=== PATIENT | female | born 1930 | race Caucasian/White ===

== ENCOUNTER 2017-03-20 17:16 | Observation (INO) | payer MEDICARE ==
[2017-03-20] MEDS ORDERED: NS 0.9% 1000 ML* 1,000 ML IV ONE (20:39)
[2017-03-20 21:08] LABS: Hematocrit 30 % (35-47); Mean Corpuscular HGB Conc 33 g/dl (31-36); Mean Corpuscular Hemoglobin 29 pg (27-31); Mean Corpuscular Volume 87 fL (80-97); Mean Platelet Volume 10 um3 (7.4-10.4); Red Blood Count 3.47 10^6/ul (4.0-5.4); Red Cell Distribution Width 14 % (10.5-15); White Blood Count 14.5 10^3/ul (3.5-10.8)
[2017-03-20 21:24] LABS: Albumin 3.6 g/dL (3.2-5.2); BUN/Creatinine Ratio 21.7 (8-20); Calcium 9.2 mg/dL (8.6-10.3); EGFR African American 63.4 (>60); EGFR Non-African American 49.3 (>60); Globulin 3.5 g/dL (2-4); Magnesium 1.5 mg/dL (1.9-2.7); Potassium 3.2 mmol/L (3.5-5.0); Total Bilirubin 0.6 mg/dL (0.2-1.0); Total Protein 7.1 g/dL (6.4-8.9)
[2017-03-20 21:26] LABS: Troponin I 0.01 ng/mL (<0.04)
[2017-03-20] MEDS ORDERED: Potassium Chlor TAB* 20 MEQ TAB.ER PO ONE (21:42)
[2017-03-20 21:46] LABS: TSH (Thyroid Stimulating Horm) 5.16 mcIU/mL (0.34-5.60)
--- NOTE | 2017-03-20 21:56 | RAD ---
HISTORY: Weakness COMPARISONS: None VIEWS:1: Single frontal portable view of the chest at 8:10 PM FINDINGS: LINES AND TUBES: None. CARDIOMEDIASTINAL SILHOUETTE: The cardiomediastinal silhouette is normal for portable technique. PLEURA: The costophrenic angles are sharp. No pleural abnormalities are noted. LUNG PARENCHYMA: There is hyperinflation. ABDOMEN: The upper abdomen is clear. There is no subphrenic gas. BONES AND SOFT TISSUES: No bone or soft tissue abnormalities are noted. IMPRESSION: HYPERINFLATION. NO ACTIVE CARDIOPULMONARY DISEASE.
[2017-03-21] MEDS ORDERED: Al Hydrox/Mg Hydrox/Simet LIQ* 30 ML UDC PO PRN (00:33)
[2017-03-21] MEDS ORDERED: Docusate CAP* 100 MG PO PRN (00:33)
[2017-03-21] MEDS ORDERED: Magnesium Hydroxide LIQ* 30 ML UDC PO PRN (00:33)
[2017-03-21] MEDS ORDERED: Acetaminophen TAB* 325 MG PO PRN (00:33)
[2017-03-21] MEDS ORDERED: Senna TAB PO PRN (00:33)
[2017-03-21] MEDS ORDERED: traMADol TAB* 50 MG PO PRN (00:36)
[2017-03-21] MEDS ORDERED: Magnesium Sulfate 2 GM IV* 2 GM/50 ML BAG IVPB ONE (00:42)
[2017-03-21 00:53] LABS: C Reactive Protein 98.23 mg/L (< 5.00)
[2017-03-21 01:41] LABS: Erythrocyte Sed Rate 47 mm/Hr (0-40)
--- NOTE | 2017-03-21 01:42 | ED ---
Phuong Jimenez Alok, scribed for Antelmo Redd on 03/20/17 at 2107 . Upper Extremity Pain - HPI Summary HPI Summary: 87 y/o female presents to the ED for pain described as a soreness in her upper arms and shoulders bilaterally. Pt has been taking Lipitor since November 2016 and states that her arm pain began following an increase of her Lipitor dosage in January 2017 to 80 mg which was subsequently decreased to 40 mg shortly after onset of pain. Following this decrease however, the pt still reports her upper extremity pain has still been present and worsening. Pt's condition has worsened yet again today and has been unable to ambulate or move her arms since today, last ambulating a small amount yesterday. Pt has been straining to get up for the past few days. Pt denies abd pain, CP, SOB, or HARRIS. PMHx includes HTN. Pt lives alone and spoke with her PCP today who instructed her to discontinue her Lipitor. - History of Current Complaint Chief Complaint: EDWeakness Stated Complaint: WEAKNESS Time Seen by Provider: 03/20/17 20:30 Hx Obtained From: Patient Onset/Duration: Started Weeks Ago, Still Present, Worse Since - Today Severity Initially: Moderate Severity Currently: Moderate Pain Location: Shoulder - Bilaterally, Arm - Bilaterally Associated Signs & Symptoms: Positive: Weakness - Upper and lower extremities bilaterally. Negative: Chest Pain, SOB - Allergies/Home Medications Allergies/Adverse Reactions: Allergies Allergy/AdvReac Type Severity Reaction Status Date / Time No Known Allergies Allergy Verified 03/20/17 19:33 Home Medications: Home Medications Metoprolol Succinate [Toprol Xl] 50 mg PO QPM 03/21/17 [History Confirmed ] Valsartan TAB* [Diovan TAB*] 80 mg PO QPM 03/21/17 [History Confirmed 03/21/17] PMH/Surg Hx/FS Hx/Imm Hx Cardiovascular History: Reports: Hx Hypertension Infectious Disease History: No Infectious Disease History: Denies: Traveled Outside the [place] in Last 30 Days - Family History Known Family History: Negative: Hypertension - Social History Alcohol Use: None Substance Use Type: Reports: None Smoking Status (MU): Never Smoked Tobacco Review of Systems Negative: Fever Negative: Shortness Of Breath Negative: Abdominal Pain Positive: Other - Upper extremity pain bilaterally Positive: Weakness - Upper and lower extremity weakness bilaterally. Negative: Headache All Other Systems Reviewed And Are Negative: Yes Physical Exam Triage Information Reviewed: Yes Vital Signs On Initial Exam: Initial Vitals Temp Pulse Resp BP Pulse Ox 98.5 F 93 20 150/51 100 03/20/17 17:19 03/20/17 17:19 03/20/17 17:19 03/20/17 17:19 03/20/17 17:19 Vital Signs Reviewed: Yes Appearance: Positive: Well-Appearing, No Pain Distress Skin: Positive: Warm, Skin Color Reflects Adequate Perfusion, Dry Head/Face: Positive: Normal Head/Face Inspection Eyes: Positive: EOMI, LIZETH ENT: Positive: Normal ENT inspection Neck: Positive: Supple, Nontender Respiratory/Lung Sounds: Positive: Clear to Auscultation, Breath Sounds Present Cardiovascular: Positive: RRR Abdomen Description: Positive: Nontender, Soft Bowel Sounds: Positive: Present Musculoskeletal: Positive: Other - Unable to move upper extremities bilaterally. Upper extremity tenderness bilaterally. Neurological: Positive: Alert, Oriented to Person Place, Time, CN Intact II-III , Other - Unable to move upper extemities bilaterally. No focal/neurological deficit - Katty Coma Scale Coma Scale Total: 15 Diagnostics - Vital Signs Vital Signs Temp Pulse Resp BP Pulse Ox 03/20/17 19:29 99.3 F 86 14 139/53 98 03/20/17 18:48 100 F 90 18 151/53 100 03/20/17 17:19 98.5 F 93 20 150/51 100 - Laboratory Lab Results: Lab Results 03/20/17 03/20/17 03/20/17 Range/Units 20:55 20:55 20:55 WBC 14.5 H (3.5-10.8) 10^3/ul RBC 3.47 L (4.0-5.4) 10^6/ul Hgb 10.0 L (12.0-16.0) g/dl Hct 30 L (35-47) % MCV 87 (80-97) fL MCH 29 (27-31) pg MCHC 33 (31-36) g/dl RDW 14 (10.5-15) % Plt Count 189 (150-450) 10^3/ul MPV 10 (7.4-10.4) um3 Neut % (Auto) 83.8 H (38-83) % Lymph % (Auto) 5.3 L (25-47) % [place] % (Auto) 10.3 H (1-9) % Eos % (Auto) 0.2 (0-6) % Baso % (Auto) 0.4 (0-2) % Absolute Neuts (auto) 12.2 H (1.5-7.7) 10^3/ul Absolute Lymphs (auto) 0.8 L (1.0-4.8) 10^3/ul Absolute Monos (auto) 1.5 H (0-0.8) 10^3/ul Absolute Eos (auto) 0 (0-0.6) 10^3/ul Absolute Basos (auto) 0.1 (0-0.2) 10^3/ul Absolute Nucleated RBC 0 10^3/ul Nucleated RBC % 0 ESR Pending INR (Anticoag Therapy) 1.01 (0.89-1.11) APTT 32.1 (26.0-36.3) seconds Sodium 129 L (133-145) mmol/L Potassium 3.2 L (3.5-5.0) mmol/L Chloride 99 L (101-111) mmol/L Carbon Dioxide 20 L (22-32) mmol/L Anion Gap 10 (2-11) mmol/L BUN 23 (6-24) mg/dL Creatinine 1.06 H (0.51-0.95) mg/dL Est GFR ( Amer) 63.4 (>60) Est GFR (Non-Af Amer) 49.3 (>60) BUN/Creatinine Ratio 21.7 H (8-20) Glucose 123 H (70-100) mg/dL Lactic Acid (0.5-2.0) mmol/L Calcium 9.2 (8.6-10.3) mg/dL Magnesium 1.5 L (1.9-2.7) mg/dL Total Bilirubin 0.60 (0.2-1.0) mg/dL AST 20 (13-39) U/L ALT 25 (7-52) U/L Alkaline Phosphatase 79 (34-104) U/L Total Creatine Kinase 43 (10-223) U/L CK-MB (CK-2) 2.5 (0.6-6.3) ng/mL Troponin I 0.01 (<0.04) ng/mL C-Reactive Protein 98.23 H (< 5.00) mg/L B-Natriuretic Peptide ( - 100) pg/mL Total Protein 7.1 (6.4-8.9) g/dL Albumin 3.6 (3.2-5.2) g/dL Globulin 3.5 (2-4) g/dL Albumin/Globulin Ratio 1.0 (1-3) TSH 5.16 (0.34-5.60) mcIU/mL 03/20/17 03/20/17 Range/Units 20:55 20:55 WBC (3.5-10.8) 10^3/ul RBC (4.0-5.4) 10^6/ul Hgb (12.0-16.0) g/dl Hct (35-47) % MCV (80-97) fL MCH (27-31) pg MCHC (31-36) g/dl RDW (10.5-15) % Plt Count (150-450) 10^3/ul MPV (7.4-10.4) um3 Neut % (Auto) (38-83) % Lymph % (Auto) (25-47) % [place] % (Auto) (1-9) % Eos % (Auto) (0-6) % Baso % (Auto) (0-2) % Absolute Neuts (auto) (1.5-7.7) 10^3/ul Absolute Lymphs (auto) (1.0-4.8) 10^3/ul Absolute Monos (auto) (0-0.8) 10^3/ul Absolute Eos (auto) (0-0.6) 10^3/ul Absolute Basos (auto) (0-0.2) 10^3/ul Absolute Nucleated RBC 10^3/ul Nucleated RBC % ESR INR (Anticoag Therapy) (0.89-1.11) APTT (26.0-36.3) seconds Sodium (133-145) mmol/L Potassium (3.5-5.0) mmol/L Chloride (101-111) mmol/L Carbon Dioxide (22-32) mmol/L Anion Gap (2-11) mmol/L BUN (6-24) mg/dL Creatinine (0.51-0.95) mg/dL Est GFR ( Amer) (>60) Est GFR (Non-Af Amer) (>60) BUN/Creatinine Ratio (8-20) Glucose (70-100) mg/dL Lactic Acid 0.7 (0.5-2.0) mmol/L Calcium (8.6-10.3) mg/dL Magnesium (1.9-2.7) mg/dL Total Bilirubin (0.2-1.0) mg/dL AST (13-39) U/L ALT (7-52) U/L Alkaline Phosphatase (34-104) U/L Total Creatine Kinase (10-223) U/L CK-MB (CK-2) (0.6-6.3) ng/mL Troponin I (<0.04) ng/mL C-Reactive Protein (< 5.00) mg/L B-Natriuretic Peptide 386 H ( - 100) pg/mL Total Protein (6.4-8.9) g/dL Albumin (3.2-5.2) g/dL Globulin (2-4) g/dL Albumin/Globulin Ratio (1-3) TSH (0.34-5.60) mcIU/mL Result Diagrams: 03/20/17 20:55 03/20/17 20:55 Lab Statement: Any lab studies that have been ordered have been reviewed, and results considered in the medical decision making process. - Radiology CXR Xray Interpretation: Positive (See Comments) - IMPRESSION: HYPERINFLATION. NO ACTIVE CARDIOPULMONARY DISEASE. Radiology Interpretation Completed By: Radiologist - CT Brain CT CT Interpretation: Positive (See Comments) - IMPRESSION: NO EVIDENCE OF ACUTE PATHOLOGY. CT Interpretation Completed By: Radiologist - EKG 1726 Cardiac Rate: NL - 88 bpm EKG Rhythm: Sinus Rhythm EKG Interpretation: No acute changes - Additional Comments Diagnostic Additional Comments: Vein doppler bilateral -IMPRESSION: No DVT. Slower flow in the right upper extremity of uncertain significance. Course/Dx - Course Course Of Treatment: Pt arrived to ED with weakness and unable to move arms. Labs and US done. Pt is unable to ambulate and will be admitted to Dr. Lo. Pt is Hyponatremic and hypocalcemic. - Diagnoses Provider Diagnoses: Weakness, Unable to ambulate, Body aches, Hyponatremia - Physician Notifications Discussed Care Of Patient With: Dr. Lo (Hospitalist) @ [id number] - Will admit pt. Discharge - Discharge Plan Condition: Stable Disposition: ADMITTED TO [facility] documentation as recorded by the Phuong trevino Alok accurately reflects the service I personally performed and the decisions made by , Antelmo Redd.
--- NOTE | 2017-03-21 03:04 | HP ---
HISTORY AND PHYSICAL: DATE OF ADMISSION: 03/21/17 TIME OF EVALUATION: 0000. PRIMARY CARE PHYSICIAN: Nara Jay MD CHIEF COMPLAINT: Weakness and muscle soreness. HISTORY OF PRESENT ILLNESS: This is an 87-year-old female with past medical history of hypertension, coronary artery disease and hyperlipidemia who presented to the emergency room with worsening muscle soreness and body aches. The patient states that around the beginning of the year, her Lipitor was doubled to 80 mg. Since then, she has had significant muscle soreness mostly in her upper extremities. About a month ago, her primary decreased her Lipitor down to 40 mg and she states that the weakness and the muscle soreness did not seem to get better and last evening her muscles are still sore; she can barely move them and she feels so weak that she can barely ambulate, and she came to the emergency room for further evaluation. The patient denies any chest pain or shortness of breath. No weight loss. She states she has chronic swelling in her legs from her amlodipine. No fevers, no urinary symptoms, no bowel symptoms, no abdominal pain, no nausea, vomiting or diarrhea. She states she is independent of her activities of daily living and lives alone and did mow the lawn last week for the first time of the year, otherwise no other exertional activities over the past week. She denies any numbness or tingling. She states the worst amount of pain is in the upper arm muscle region. In the emergency room, the patient had labs, imaging and was referred to the hospitalist service for further evaluation. In the emergency room, the patient was given 20 mEq of potassium chloride. PAST MEDICAL HISTORY: 1. Hyperlipidemia 2. Hypertension. 3. History of iron deficiency anemia. 4. Coronary artery disease. 5. Hypothyroidism. 6. Diastolic dysfunction. 7. [id number]-cgicayqc aortic stenosis. 8. Moderate mitral valve insufficiency. MEDICATIONS: 1. Losartan 160 mg in the morning and 240 mg in the evening. 2. Ferrous sulfate 325 mg 1 twice a week. 3. Amlodipine 2.5 mg p.o. b.i.d. 4. Hydrochlorothiazide 25 mg daily. 5. Levothyroxine 50 mcg daily. 6. Atorvastatin 40 mg daily. 7. Metoprolol succinate ER 100 mg in the morning, 50 mg in the evening. 8. Omeprazole 20 mg daily. 9. [place]-3 fish oil 1000 mg daily. 10. Aspirin 81 mg a day. 11. Glucosamine 2000 mg daily. ALLERGIES: No known drug allergies. FAMILY HISTORY: Reviewed and noncontributory. SOCIAL HISTORY: As mentioned, the patient lives alone. She is independent with her ADLs. 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 As mentioned , she also is still mowing the lawn. No history of smoking, alcohol or illicit drug use. Her healthcare proxy is her daughter, Cecilia. Code status, full code. REVIEW OF SYSTEMS: As mentioned in the HPI. PHYSICAL EXAMINATION GENERAL: In no acute distress. Resting comfortably with her daughter at the bedside. VITAL SIGNS: Temperature is 99.3, pulse rate is 79, respiratory rate 20, oxygen saturation 98% on room air, and blood pressure 150/42. HEENT: Pupils equal and reactive, anicteric. Head: Normocephalic. Oropharynx : Mucous membranes moist with no erythema or exudate. CARDIAC: Harsh systolic murmur. Regular rate and rhythm. RESPIRATORY: Clear to auscultation. No wheezing, rhonchi or rales. ABDOMEN: Soft, nontender, and nondistended. EXTREMITIES: Trace pretibial edema. +2 DPs. NEUROLOGIC: Alert and oriented x3. Cranial nerves II to XII are intact. Extremities: Upper muscle strength 1/5 in her upper extremities. Handgrips are normal. She has tenderness in the muscular region in the upper forearm. Lower extremities 3/5 bilaterally, equal and symmetric. DIAGNOSTIC STUDIES/LABORATORY DATA: White count 14.5, hemoglobin 10, hematocrit 30, platelets 189. INR is 1. Sodium 129, potassium 3.2, chloride 99 , bicarb 20, BUN 23, creatinine 1.06, glucose 123, magnesium 1.5, troponin 0.01 , AST is 20, ALT is 25, total CK is 43. BNP is 386, TSH 5.16. Radiographic data: Chest x-ray; hyperinflation, no active cardiopulmonary disease. EKG; sinus rhythm with following ND interval. Venous Doppler of upper extremities; no DVTs. Low flow in the right upper extremity of uncertain significance. ASSESSMENT: This is an 87-year-old female with past medical history of hyperlipidemia, on Lipitor who presents to the emergency room with acute on chronic muscle soreness to the point of extreme weakness and unable to ambulate. Weakness. Assessment: The patient has a quite significant muscle weakness and difficulty with ambulating and moving her upper extremities. She is on Lipitor which can cause significant myositis. Her CK is not elevated and her liver enzymes are normal as well. Also on the differential is polymyalgia rheumatica and multiple myeloma, less likely is an acute stroke due to the presentation and symmetry of her symptoms. Plan: We will get a head CT, admit her to telemetry. We will check a urinalysis and a urine protein electrophoresis. We will check a sed rate and ESR. If her ESR is elevated, I will consider a short course of prednisone to see resolution of symptoms. We will also get in a PT consult and order tramadol as needed for pain. If her symptoms are not improved on prednisone, recommend further workup, rheumatologic versus neurologic workup for this individual and, as mentioned, we will hold her Lipitor. CHRONIC MEDICAL PROBLEMS: 1. Hypertension: We will resume her home medications as prescribed with the exception of hydrochlorothiazide. 2. Hypothyroidism: Resume her levothyroxine. 3. Gastroesophageal reflux disease: Continue her omeprazole. 4. Coronary artery disease: Resume her baby aspirin. 5. FEN: Place her on heart-healthy diet. 6. DVT prophylaxis, high risk. Place her on heparin subcu t.i.d. 7. Code status. Full code. TIME SPENT: Greater than 60 minutes was spent doing the history and physical, more than half the time spent in direct patient contact. CC: Nara Jay MD* [id number]/CPS #: [id number] CINDY
[2017-03-21 03:07] LABS: Urine Bacteria 1+ (Absent); Urine Bilirubin Negative (Negative); Urine Glucose Negative (Negative); Urine Nitrite Negative (Negative)
[2017-03-21 05:42] LABS: Hematocrit 28 % (35-47); Hemoglobin 9.6 g/dl (12.0-16.0); Mean Corpuscular HGB Conc 34 g/dl (31-36); Mean Corpuscular Hemoglobin 30 pg (27-31); Mean Corpuscular Volume 87 fL (80-97); Mean Platelet Volume 10 um3 (7.4-10.4); Red Blood Count 3.26 10^6/ul (4.0-5.4); Red Cell Distribution Width 15 % (10.5-15); White Blood Count 10.8 10^3/ul (3.5-10.8)
[2017-03-21] MEDS: Levothyroxine TAB* 50 MCG TAB PO SCH (05:53)
[2017-03-21] MEDS: Omeprazole CAP* 20 MG PO SCH (05:53)
[2017-03-21] MEDS: Heparin VIAL(*) 5000 UNITS/ML VIAL (FIVE THOUSAND) SUBCUT SCH ×3 (05:54→21:26)
[2017-03-21 05:56] LABS: BUN/Creatinine Ratio 20.2 (8-20); Calcium 8.8 mg/dL (8.6-10.3); EGFR African American 64.8 (>60); EGFR Non-African American 50.4 (>60); Potassium 3.3 mmol/L (3.5-5.0)
--- NOTE | 2017-03-21 07:35 | RAD ---
INDICATION: Pain and swelling. COMPARISON: None TECHNIQUE: Duplex interrogation of the both upper extremities were performed. FINDINGS: Deep veins: The visualized jugular, subclavian, axillary, brachial, cephalic, basilic, radial, and ulnar veins were interrogated bilaterally. There was no evidence of acute deep venous thrombosis. There is normal compressibility. There did appear to be relatively slower flow on the right upper extremity which is of unknown significance. Superficial veins: There are no findings of superficial thrombophlebitis. Soft tissues:There are no soft tissue abnormalities. IMPRESSION: NO EVIDENCE OF DEEP VENOUS THROMBOSIS. THERE IS SOME RIGHT-SIDED VENOUS STASIS.
--- NOTE | 2017-03-21 08:04 | RAD ---
HISTORY: Weakness COMPARISONS: None TECHNIQUE: Multiple contiguous axial CT scans were obtained of the head without intravenous contrast. FINDINGS: HEMORRHAGE/INFARCT: There is no hemorrhage or acute infarct. MASSES/SHIFT: There is no mass or shift. EXTRA-AXIAL SPACES: There are no extra-axial fluid collections. SULCI AND VENTRICLES: The sulci and ventricles are normal in size and position for the patient's stated age. CEREBRUM: There is mild, patchy hypoattenuation of the periventricular and subcortical white matter. BRAINSTEM: There are no focal parenchymal abnormalities. CEREBELLUM: There are no focal parenchymal abnormalities. VESSELS: The vessels are grossly normal. PARANASAL SINUSES: The paranasal sinuses are clear. ORBITS: The orbits are unremarkable. BONES AND SOFT TISSUE: No bone or soft tissue abnormalities are noted. OTHER: None IMPRESSION: NO ACUTE INTRACRANIAL PATHOLOGY.
[2017-03-21] MEDS: Metoprolol Succinate XL TAB* 100 MG PO SCH (09:16)
[2017-03-21] MEDS: Valsartan TAB* 160 MG PO SCH (09:17)
[2017-03-21] MEDS: Aspirin EC Low Dose* 81 MG TAB.EC PO SCH (09:17)
[2017-03-21] MEDS: amLODIPine TAB* 5 MG PO SCH ×2 (09:17→21:26)
[2017-03-21] MEDS ORDERED: Potassium Chlor TAB* 20 MEQ TAB.ER PO ONE (16:00)
[2017-03-21] MEDS: predniSONE TAB* 20 MG PO SCH (16:13)
--- NOTE | 2017-03-21 16:18 | PN ---
Subjective Date of Service: 03/21/17 Interval History: Pt is feeling ok. She states she walked a little better this afternoon than this AM. She is still so sore and weak in her upper extremities that she can barely move around in the bed. Objective Active Medications: Acetaminophen (Tylenol Tab*) 650 mg PO Q4H PRN PRN Reason: FEVER/PAIN Al Hydrox/Mg Hydrox/Simethicone (Maalox Plus*) 30 ml PO Q6H PRN PRN Reason: INDIGESTION Amlodipine Besylate (Norvasc Tab*) 2.5 mg PO BID [facility] Last Admin: 03/21/17 09:17 Dose: 2.5 mg Aspirin (Aspirin Ec Low Dose*) 81 mg PO DAILY [facility] Last Admin: 03/21/17 09:17 Dose: 81 mg Docusate Sodium (Colace Cap*) 100 mg PO BID PRN PRN Reason: CONSTIPATION Heparin Sodium (Porcine) (Heparin Vial(*)) 5,000 units SUBCUT Q8HR [facility] Last Admin: 03/21/17 13:25 Dose: Not Given Levothyroxine Sodium (Synthroid Tab*) 50 mcg PO DAILY@0600 [facility] Last Admin: 03/21/17 05:53 Dose: 50 mcg Magnesium Hydroxide (Milk Of Magnbasil Liq*) 30 ml PO Q4H PRN PRN Reason: CONSTIPATION Metoprolol Succinate (Toprol Xl Tab*) 100 mg PO DAILY [facility] Last Admin: 03/21/17 09:16 Dose: 100 mg Metoprolol Succinate (Toprol Xl Tab*) 50 mg PO 2100 [facility] Omeprazole (Prilosec Cap*) 20 mg PO 0600 [facility] Last Admin: 03/21/17 05:53 Dose: 20 mg Prednisone (Deltasone Tab*) 20 mg PO DAILY [facility] Senna (Senokot Tab*) 1 tab PO BID PRN PRN Reason: CONSTIPATION Tramadol HCl (Ultram*) 50 mg PO Q6H PRN PRN Reason: PAIN Valsartan (Diovan Tab*) 160 mg PO DAILY [facility] Last Admin: 03/21/17 09:17 Dose: 160 mg Valsartan (Diovan Tab*) 240 mg PO 2100 [facility] Vital Signs 03/21/17 03/21/17 03/21/17 00:46 00:58 01:00 Temperature Pulse Rate 79 80 Respiratory 20 18 Rate Blood Pressure 162/59 150/53 (mmHg) O2 Sat by Pulse 97 97 Oximetry 03/21/17 03/21/17 03/21/17 01:30 01:50 07:41 Temperature 99.4 F 99.5 F 99.2 F Pulse Rate 77 81 80 Respiratory 19 20 16 Rate Blood Pressure 170/58 155/50 156/50 (mmHg) O2 Sat by Pulse 98 100 95 Oximetry 03/21/17 03/21/17 03/21/17 08:00 11:47 11:55 Temperature 98.4 F Pulse Rate 75 Respiratory 18 16 Rate Blood Pressure 185/48 166/48 (mmHg) O2 Sat by Pulse 98 Oximetry Oxygen Devices in Use Now: None Appearance: Elderly female lying in bed, NAD Eyes: No Scleral Icterus Ears/Nose/Mouth/Throat: Mucous Membranes Moist Respiratory: Symmetrical Chest Expansion and Respiratory Effort, Clear to Auscultation Cardiovascular: NL Sounds; No Murmurs; No JVD, RRR, No Edema Abdominal: NL Sounds; No Tenderness; No Distention Extremities: No Clubbing, Cyanosis Skin: No Rash or Ulcers, No Nodules or Sclerosis Neurological: Alert and Oriented x 3, - - pt can barely lift her arms off the bed, she needs assistance turning over in bed Result Diagrams: 03/21/17 05:17 03/21/17 05:17 Additional Lab and Data: Lab Results 03/20/17 03/20/17 03/20/17 Range/Units 20:55 20:55 20:55 WBC 14.5 H (3.5-10.8) 10^3/ul RBC 3.47 L (4.0-5.4) 10^6/ul Hgb 10.0 L (12.0-16.0) g/dl Hct 30 L (35-47) % MCV 87 (80-97) fL MCH 29 (27-31) pg MCHC 33 (31-36) g/dl RDW 14 (10.5-15) % Plt Count 189 (150-450) 10^3/ul MPV 10 (7.4-10.4) um3 Neut % (Auto) 83.8 H (38-83) % Lymph % (Auto) 5.3 L (25-47) % Lee % (Auto) 10.3 H (1-9) % Eos % (Auto) 0.2 (0-6) % Baso % (Auto) 0.4 (0-2) % Absolute Neuts (auto) 12.2 H (1.5-7.7) 10^3/ul Absolute Lymphs (auto) 0.8 L (1.0-4.8) 10^3/ul Absolute Monos (auto) 1.5 H (0-0.8) 10^3/ul Absolute Eos (auto) 0 (0-0.6) 10^3/ul Absolute Basos (auto) 0.1 (0-0.2) 10^3/ul Absolute Nucleated RBC 0 10^3/ul Nucleated RBC % 0 ESR Pending INR (Anticoag Therapy) 1.01 (0.89-1.11) APTT 32.1 (26.0-36.3) seconds Sodium 129 L (133-145) mmol/L Potassium 3.2 L (3.5-5.0) mmol/L Chloride 99 L (101-111) mmol/L Carbon Dioxide 20 L (22-32) mmol/L Anion Gap 10 (2-11) mmol/L BUN 23 (6-24) mg/dL Creatinine 1.06 H (0.51-0.95) mg/dL Est GFR ( Amer) 63.4 (>60) Est GFR (Non-Af Amer) 49.3 (>60) BUN/Creatinine Ratio 21.7 H (8-20) Glucose 123 H (70-100) mg/dL Lactic Acid (0.5-2.0) mmol/L Calcium 9.2 (8.6-10.3) mg/dL Magnesium 1.5 L (1.9-2.7) mg/dL Total Bilirubin 0.60 (0.2-1.0) mg/dL AST 20 (13-39) U/L ALT 25 (7-52) U/L Alkaline Phosphatase 79 (34-104) U/L Total Creatine Kinase 43 (10-223) U/L CK-MB (CK-2) 2.5 (0.6-6.3) ng/mL Troponin I 0.01 (<0.04) ng/mL C-Reactive Protein 98.23 H (< 5.00) mg/L B-Natriuretic Peptide ( - 100) pg/mL Total Protein 7.1 (6.4-8.9) g/dL Albumin 3.6 (3.2-5.2) g/dL Globulin 3.5 (2-4) g/dL Albumin/Globulin Ratio 1.0 (1-3) TSH 5.16 (0.34-5.60) mcIU/mL 03/20/17 03/20/17 Range/Units 20:55 20:55 WBC (3.5-10.8) 10^3/ul RBC (4.0-5.4) 10^6/ul Hgb (12.0-16.0) g/dl Hct (35-47) % MCV (80-97) fL MCH (27-31) pg MCHC (31-36) g/dl RDW (10.5-15) % Plt Count (150-450) 10^3/ul MPV (7.4-10.4) um3 Neut % (Auto) (38-83) % Lymph % (Auto) (25-47) % Lee % (Auto) (1-9) % Eos % (Auto) (0-6) % Baso % (Auto) (0-2) % Absolute Neuts (auto) (1.5-7.7) 10^3/ul Absolute Lymphs (auto) (1.0-4.8) 10^3/ul Absolute Monos (auto) (0-0.8) 10^3/ul Absolute Eos (auto) (0-0.6) 10^3/ul Absolute Basos (auto) (0-0.2) 10^3/ul Absolute Nucleated RBC 10^3/ul Nucleated RBC % ESR INR (Anticoag Therapy) (0.89-1.11) APTT (26.0-36.3) seconds Sodium (133-145) mmol/L Potassium (3.5-5.0) mmol/L Chloride (101-111) mmol/L Carbon Dioxide (22-32) mmol/L Anion Gap (2-11) mmol/L BUN (6-24) mg/dL Creatinine (0.51-0.95) mg/dL Est GFR ( Amer) (>60) Est GFR (Non-Af Amer) (>60) BUN/Creatinine Ratio (8-20) Glucose (70-100) mg/dL Lactic Acid 0.7 (0.5-2.0) mmol/L Calcium (8.6-10.3) mg/dL Magnesium (1.9-2.7) mg/dL Total Bilirubin (0.2-1.0) mg/dL AST (13-39) U/L ALT (7-52) U/L Alkaline Phosphatase (34-104) U/L Total Creatine Kinase (10-223) U/L CK-MB (CK-2) (0.6-6.3) ng/mL Troponin I (<0.04) ng/mL C-Reactive Protein (< 5.00) mg/L B-Natriuretic Peptide 386 H ( - 100) pg/mL Total Protein (6.4-8.9) g/dL Albumin (3.2-5.2) g/dL Globulin (2-4) g/dL Albumin/Globulin Ratio (1-3) TSH (0.34-5.60) mcIU/mL Assess/Plan/Problems-Billing Ms Eduardo is an 87 yo F who has a h/o HLD, HTN, CAD, and hypothyroidism who presented to the ER with c/o severe muscle pain and weakness in the upper extremities > the lower extremities. - Patient Problems (1) Myalgia Current Visit: Yes Status: Acute Code(s): M79.1 - MYALGIA SNOMED Code(s): 75535118 Comment: Unclear etiology. Her statin has been stopped. ? PMR despite her only moderately elevated ESR. Will trial prednisone 20mg daily starting tonight. If PMR is the cause she should have dramatic improvement in her pain symptoms. Will re-assess tomorrow AM. Continue PT. ? need for STR if she fails to improve quickly. (2) HLD (hyperlipidemia) Current Visit: Yes Status: Acute Code(s): E78.5 - HYPERLIPIDEMIA, UNSPECIFIED SNOMED Code(s): 53055146 Comment: Statin has been stopped due to her severe myalgias. (3) HTN (hypertension) Current Visit: Yes Status: Acute Code(s): I10 - ESSENTIAL (PRIMARY) HYPERTENSION SNOMED Code(s): 44216993 Comment: BP is under good control. Continue home medication regimen. (4) CAD (coronary artery disease) Current Visit: Yes Status: Acute Code(s): I25.10 - ATHSCL HEART DISEASE OF [place] CORONARY ARTERY W/O ANG PCTRS SNOMED Code(s): 57687187 Comment: Continue metoprolol and ASA. Lipitor is on hold as above. (5) DVT prophylaxis Current Visit: Yes Status: Acute Code(s): AUQ8246 - SNOMED Code(s): 707127881 Comment: SQ heparin (6) Full code status Current Visit: Yes Status: Acute Code(s): Z78.9 - OTHER SPECIFIED HEALTH STATUS SNOMED Code(s): 031765715
[2017-03-21] MEDS ORDERED: Metoprolol Succinate XL TAB* 50 MG PO SCH (21:00)
[2017-03-21] MEDS ORDERED: Valsartan TAB* 80 MG PO SCH ×2 (21:00→23:05)
[2017-03-22] MEDS: Levothyroxine TAB* 50 MCG TAB PO SCH (05:27)
[2017-03-22] MEDS: Omeprazole CAP* 20 MG PO SCH (05:27)
[2017-03-22] MEDS: Heparin VIAL(*) 5000 UNITS/ML VIAL (FIVE THOUSAND) SUBCUT SCH ×2 (05:27→15:29)
[2017-03-22] MEDS: Valsartan TAB* 160 MG PO SCH (09:25)
[2017-03-22] MEDS: Metoprolol Succinate XL TAB* 100 MG PO SCH (09:25)
[2017-03-22] MEDS: amLODIPine TAB* 5 MG PO SCH (09:25)
[2017-03-22] MEDS: Aspirin EC Low Dose* 81 MG TAB.EC PO SCH (09:25)
[2017-03-22] MEDS: predniSONE TAB* 20 MG PO SCH (09:25)
--- NOTE | 2017-03-22 14:23 | PN ---
Subjective Date of Service: 03/22/17 Interval History: The patient feels dramatically better today. She states she went to be around 2200 last night and was awakened around 0200 by getting her vitals obtained. She realized that at that time she was able to pull herself up in bed to a seated position without any difficulty. This was a dramatic improvement from yesterday afternoon when I saw her and she was unable to lift her arms off the bed. Objective Active Medications: Acetaminophen (Tylenol Tab*) 650 mg PO Q4H PRN PRN Reason: FEVER/PAIN Al Hydrox/Mg Hydrox/Simethicone (Maalox Plus*) 30 ml PO Q6H PRN PRN Reason: INDIGESTION Amlodipine Besylate (Norvasc Tab*) 2.5 mg PO BID [facility] Last Admin: 03/22/17 09:25 Dose: 2.5 mg Aspirin (Aspirin Ec Low Dose*) 81 mg PO DAILY [facility] Last Admin: 03/22/17 09:25 Dose: 81 mg Docusate Sodium (Colace Cap*) 100 mg PO BID PRN PRN Reason: CONSTIPATION Heparin Sodium (Porcine) (Heparin Vial(*)) 5,000 units SUBCUT Q8HR [facility] Last Admin: 03/22/17 05:27 Dose: 5,000 units Levothyroxine Sodium (Synthroid Tab*) 50 mcg PO DAILY@0600 [facility] Last Admin: 03/22/17 05:27 Dose: 50 mcg Magnesium Hydroxide (Milk Of Magnesia Liq*) 30 ml PO Q4H PRN PRN Reason: CONSTIPATION Metoprolol Succinate (Toprol Xl Tab*) 100 mg PO DAILY [facility] Last Admin: 03/22/17 09:25 Dose: 100 mg Metoprolol Succinate (Toprol Xl Tab*) 50 mg PO 2100 [facility] Last Admin: 03/21/17 21:23 Dose: 50 mg Omeprazole (Prilosec Cap*) 20 mg PO 0600 [facility] Last Admin: 03/22/17 05:27 Dose: 20 mg Prednisone (Deltasone Tab*) 20 mg PO DAILY [facility] Last Admin: 03/22/17 09:25 Dose: 20 mg Senna (Senokot Tab*) 1 tab PO BID PRN PRN Reason: CONSTIPATION Tramadol HCl (Ultram*) 50 mg PO Q6H PRN PRN Reason: PAIN Valsartan (Diovan Tab*) 160 mg PO DAILY [facility] Last Admin: 03/22/17 09:25 Dose: 160 mg Valsartan (Diovan Tab*) 80 mg PO 2100 [facility] Vital Signs 03/21/17 03/21/17 03/21/17 16:15 19:53 20:00 Temperature 99.1 F 98.9 F Pulse Rate 73 76 Respiratory 20 18 18 Rate Blood Pressure 148/51 168/48 (mmHg) O2 Sat by Pulse 97 97 Oximetry 03/22/17 03/22/17 03/22/17 00:20 04:33 08:00 Temperature 98.3 F 98.7 F 99.5 F Pulse Rate 81 71 70 Respiratory 16 20 20 Rate Blood Pressure 162/56 141/44 148/50 (mmHg) O2 Sat by Pulse 96 97 97 Oximetry 03/22/17 11:14 Temperature 98.9 F Pulse Rate 65 Respiratory 18 Rate Blood Pressure 159/51 (mmHg) O2 Sat by Pulse 98 Oximetry Oxygen Devices in Use Now: None Result Diagrams: 03/21/17 05:17 03/21/17 05:17 Additional Lab and Data: Lab Results 03/20/17 03/20/17 03/20/17 Range/Units 20:55 20:55 20:55 WBC 14.5 H (3.5-10.8) 10^3/ul RBC 3.47 L (4.0-5.4) 10^6/ul Hgb 10.0 L (12.0-16.0) g/dl Hct 30 L (35-47) % MCV 87 (80-97) fL MCH 29 (27-31) pg MCHC 33 (31-36) g/dl RDW 14 (10.5-15) % Plt Count 189 (150-450) 10^3/ul MPV 10 (7.4-10.4) um3 Neut % (Auto) 83.8 H (38-83) % Lymph % (Auto) 5.3 L (25-47) % Holt % (Auto) 10.3 H (1-9) % Eos % (Auto) 0.2 (0-6) % Baso % (Auto) 0.4 (0-2) % Absolute Neuts (auto) 12.2 H (1.5-7.7) 10^3/ul Absolute Lymphs (auto) 0.8 L (1.0-4.8) 10^3/ul Absolute Monos (auto) 1.5 H (0-0.8) 10^3/ul Absolute Eos (auto) 0 (0-0.6) 10^3/ul Absolute Basos (auto) 0.1 (0-0.2) 10^3/ul Absolute Nucleated RBC 0 10^3/ul Nucleated RBC % 0 ESR Pending INR (Anticoag Therapy) 1.01 (0.89-1.11) APTT 32.1 (26.0-36.3) seconds Sodium 129 L (133-145) mmol/L Potassium 3.2 L (3.5-5.0) mmol/L Chloride 99 L (101-111) mmol/L Carbon Dioxide 20 L (22-32) mmol/L Anion Gap 10 (2-11) mmol/L BUN 23 (6-24) mg/dL Creatinine 1.06 H (0.51-0.95) mg/dL Est GFR ( Amer) 63.4 (>60) Est GFR (Non-Af Amer) 49.3 (>60) BUN/Creatinine Ratio 21.7 H (8-20) Glucose 123 H (70-100) mg/dL Lactic Acid (0.5-2.0) mmol/L Calcium 9.2 (8.6-10.3) mg/dL Magnesium 1.5 L (1.9-2.7) mg/dL Total Bilirubin 0.60 (0.2-1.0) mg/dL AST 20 (13-39) U/L ALT 25 (7-52) U/L Alkaline Phosphatase 79 (34-104) U/L Total Creatine Kinase 43 (10-223) U/L CK-MB (CK-2) 2.5 (0.6-6.3) ng/mL Troponin I 0.01 (<0.04) ng/mL C-Reactive Protein 98.23 H (< 5.00) mg/L B-Natriuretic Peptide ( - 100) pg/mL Total Protein 7.1 (6.4-8.9) g/dL Albumin 3.6 (3.2-5.2) g/dL Globulin 3.5 (2-4) g/dL Albumin/Globulin Ratio 1.0 (1-3) TSH 5.16 (0.34-5.60) mcIU/mL 03/20/17 03/20/17 Range/Units 20:55 20:55 WBC (3.5-10.8) 10^3/ul RBC (4.0-5.4) 10^6/ul Hgb (12.0-16.0) g/dl Hct (35-47) % MCV (80-97) fL MCH (27-31) pg MCHC (31-36) g/dl RDW (10.5-15) % Plt Count (150-450) 10^3/ul MPV (7.4-10.4) um3 Neut % (Auto) (38-83) % Lymph % (Auto) (25-47) % Holt % (Auto) (1-9) % Eos % (Auto) (0-6) % Baso % (Auto) (0-2) % Absolute Neuts (auto) (1.5-7.7) 10^3/ul Absolute Lymphs (auto) (1.0-4.8) 10^3/ul Absolute Monos (auto) (0-0.8) 10^3/ul Absolute Eos (auto) (0-0.6) 10^3/ul Absolute Basos (auto) (0-0.2) 10^3/ul Absolute Nucleated RBC 10^3/ul Nucleated RBC % ESR INR (Anticoag Therapy) (0.89-1.11) APTT (26.0-36.3) seconds Sodium (133-145) mmol/L Potassium (3.5-5.0) mmol/L Chloride (101-111) mmol/L Carbon Dioxide (22-32) mmol/L Anion Gap (2-11) mmol/L BUN (6-24) mg/dL Creatinine (0.51-0.95) mg/dL Est GFR ( Amer) (>60) Est GFR (Non-Af Amer) (>60) BUN/Creatinine Ratio (8-20) Glucose (70-100) mg/dL Lactic Acid 0.7 (0.5-2.0) mmol/L Calcium (8.6-10.3) mg/dL Magnesium (1.9-2.7) mg/dL Total Bilirubin (0.2-1.0) mg/dL AST (13-39) U/L ALT (7-52) U/L Alkaline Phosphatase (34-104) U/L Total Creatine Kinase (10-223) U/L CK-MB (CK-2) (0.6-6.3) ng/mL Troponin I (<0.04) ng/mL C-Reactive Protein (< 5.00) mg/L B-Natriuretic Peptide 386 H ( - 100) pg/mL Total Protein (6.4-8.9) g/dL Albumin (3.2-5.2) g/dL Globulin (2-4) g/dL Albumin/Globulin Ratio (1-3) TSH (0.34-5.60) mcIU/mL Microbiology and Other Data: Microbiology 03/21/17 02:42 Urine Culture - Final Urine Assess/Plan/Problems-Billing Ms Eduardo is an 87 yo F who has a h/o HLD, HTN, CAD, and hypothyroidism who presented to the ER with c/o severe muscle pain and weakness in the upper extremities > the lower extremities. - Patient Problems (1) Myalgia Current Visit: Yes Status: Acute Code(s): M79.1 - MYALGIA SNOMED Code(s): 92535858 Comment: The patient's symptoms are dramatically improved today making me believe h er diagnosis is PMR. She will continue on prednisone 20mg daily. She should be seen by Dr. Orozco but I am unable to schedule that appointment out of the hospital. She should be referred by her PCP. She does not even need PT at this time. (2) HLD (hyperlipidemia) Current Visit: Yes Status: Acute Code(s): E78.5 - HYPERLIPIDEMIA, UNSPECIFIED SNOMED Code(s): 03173069 Comment: Statin has been stopped due to her severe myalgias. Continue to hold this for now. (3) HTN (hypertension) Current Visit: Yes Status: Acute Code(s): I10 - ESSENTIAL (PRIMARY) HYPERTENSION SNOMED Code(s): 72766120 Comment: BP is under good control. Continue home medication regimen. (4) CAD (coronary artery disease) Current Visit: Yes Status: Acute Code(s): I25.10 - ATHSCL HEART DISEASE OF [place] CORONARY ARTERY W/O ANG PCTRS SNOMED Code(s): 85873860 Comment: Continue metoprolol and ASA. Lipitor is on hold as above. (5) DVT prophylaxis Current Visit: Yes Status: Acute Code(s): ENU0594 - SNOMED Code(s): 639822257 Comment: SQ heparin (6) Full code status Current Visit: Yes Status: Acute Code(s): Z78.9 - OTHER SPECIFIED HEALTH STATUS SNOMED Code(s): 903832425 Status and Disposition: d/c home
[2017-03-22 14:29] VITALS: BP 153/59
--- NOTE | 2017-03-23 03:01 | DS ---
DISCHARGE SUMMARY: DATE OF ADMISSION: 03/21/17 DATE OF DISCHARGE: 03/22/17 PRIMARY CARE PHYSICIAN: Dr. Jay. PRINCIPAL DIAGNOSIS: Polymyalgia rheumatica. SECONDARY DIAGNOSES: 1. Hypertension. 2. Hyperlipidemia. 3. Coronary artery disease. DISCHARGE MEDICATIONS: 1. Losartan 80 mg p.o. every evening, 160 mg p.o. every morning. 2. Omeprazole 20 mg p.o. daily. 3. Fish oil 1000 mg p.o. daily. 4. Metoprolol XL 100 mg p.o. every morning, 50 mg p.o. every evening. 5. Levothyroxine 50 mcg p.o. daily. 6. Hydrochlorothiazide 25 mg p.o. daily. 7. Glucosamine 2000 mg p.o. daily. 8. Ferrous sulfate 325 mg p.o. every 72 hours. 9. Aspirin 81 mg p.o. daily. 10. Amlodipine 2.5 mg p.o. twice daily. 11. Prednisone 20 mg p.o. daily. HOSPITAL COURSE: Ms. Eduardo is an 87-year-old female who at the beginning of 2016, had her Lipitor dose doubled by her primary care provider up to 80 mg daily. The patient states she was on this until approximately mid January when she began to have severe muscle aches, especially noted in her upper extremities. At that time, the statin dose was decreased to 40 mg daily. Despite this, she continued to have aches in her arms, mostly noted to be in the morning and in the evening. The patient states that on the Sunday prior to admission; however, she felt incredibly weak and she could not even roll over in bed. The patient then presented to the emergency room on 03/20/17 with these complaints and ultimately admitted on 03/21/17 for evaluation of her myalgias. It was felt that this could possibly be statin myopathy versus PMR versus other cause of weakness. The patient did not have an elevated CPK or liver enzymes consistent with severe myopathy from statins. The decision was made, despite her ESR being only 47, to trial prednisone 20 mg daily. The patient was given a dose of 20 mg of prednisone at approximately 5 p.m. on 03/21 and by 2 a.m. on 03/22/17, the patient was able to roll over in bed and lift her arms over her head which she had not been able to do previously. The patient states that she feels dramatically better. She states that, in fact, she is shocked that single doses of medication can make a person feel so much better. At this point, the patient is no longer needing any assistance to get in or out of bed and is able to ambulate without difficulty. At this point, she feels that she is stable for discharge home. I do believe her response to the prednisone likely feels the diagnoses of PMR is the cause of her myalgias and perceived weakness. The patient would benefit from a rheumatology evaluation ; however, I am unable to schedule this out of the hospital and the patient will need a referral from her PCP. For now, the patient will continue on 20 mg of prednisone daily. We did review that there are long-term side effects from prednisone; however, her dose should be tapered over the next several weeks to months. The patient will need to be monitored for side effects from the prednisone, however. The patient's home medication regimen is unchanged on discharge. FOLLOWUP CONCERNS: The patient is being discharged home today, 03/22/17. She is to follow up with Dr. Jay in the next 4 to 7 days. The patient should be referred to Rheumatology in the near future. ACTIVITY: As tolerated. DIET: Low fat. CONDITION ON DISCHARGE: Stable. TIME SPENT: Thirty-five minutes were spent discharging this patient. CC: Dr. Jay; Dr. Orozco* [id number]/[facility] #: [id number] MTDD
[2017-03-23 13:47] LABS: Albumin 56 %; Gamma Globulin 14 %
== END 2017-03-22 15:30 | disposition home or self-care (01) ==
LOC: ED 17:16 → INTOOBSV 03-21 00:45 → MEDTELE 03-21 00:45
PROVIDERS: ADMIT Pediatrics; ATTEND Hospitalist
DX: M35.3 Polymyalgia rheumatica (principal); E78.5 Hyperlipidemia, unspecified; I25.10 Atherosclerotic heart disease of native coronary artery without angina pectoris; I10 Essential (primary) hypertension; E03.9 Hypothyroidism, unspecified; K21.9 Gastro-esophageal reflux disease without esophagitis; I35.0 Nonrheumatic aortic (valve) stenosis; I34.0 Nonrheumatic mitral (valve) insufficiency; Z79.82 Long term (current) use of aspirin; Z79.899 Other long term (current) drug therapy; R94.31 Abnormal electrocardiogram [ECG] [EKG]; M79.602 Pain in left arm; M79.601 Pain in right arm; M25.512 Pain in left shoulder; M25.511 Pain in right shoulder
CPT/HCPCS: 36415; 70450; 71010; 80048; 80053; 81003; 81015; 82550; 82553; 83605; 83735; 83880; 84156; 84166; 84443; 84484; 85025; 85610; 85652; 85730; 86140; 87086; 93005; 93970; 96360; 96372; 99284; A9270-GY; G0378; J1644; J7512

== ENCOUNTER → 2018-08-20 08:27 | Day surgery (SDC) | payer MEDICARE ==
[~2018-08-20 08:27] MED LIST: Acetylcysteine CAP (RENAL)* 600 MG PO ONE; Acetylcysteine ORAL SOL* 200 MG/ML VIAL PO ONE; Heparin 2 UNITS/ML IVPREMIX* 2,000 ML IV ONE; Heparin(*) 1000 UNIT/ML 10 ML VIAL CATH LAB IV ONE; Iodixanol* (CONTRAST) 320 MG/ML 100 ML SDV ONE; Lidocaine 1% INJ* 10 MG/ML 30 ML SDV ONE; Midazolam* 1 MG/ML 10 ML VIAL (10 MG) ONE; NS 0.9% 1000 ML* 1,000 ML IV SCH; VERAPAMIL 2.5 MG/ML 2 ML VIAL ** 5 mg/2 ml ONE; fentaNYL* 50 MCG/ML 2 ML VIAL (100 MCG VIAL) ONE; nitroGLYCERIN DRIP* 25,000 MCG/250 ML BTL ONE
[2018-08-20 09:57] LABS: ABS Basophils 0 10^3/ul (0-0.2); ABS Eosinophils 0.4 10^3/ul (0-0.6); ABS Lymphocytes 0.8 10^3/ul (1.0-4.8); ABS Monocytes 0.8 10^3/ul (0-0.8); ABS Neutrophils 4.5 10^3/ul (1.5-7.7); ABS Nucleated RBC 0 10^3/ul; Eosinophil % 6.5 % (0-6); Hematocrit 30 % (35-47); Hemoglobin 9.9 g/dl (12.0-16.0); Mean Corpuscular HGB Conc 34 g/dl (31-36); Mean Corpuscular Hemoglobin 32 pg (27-31); Mean Corpuscular Volume 95 fL (80-97); Nucleated Red Blood Cells % 0; Platelet Count 162 10^3/ul (150-450); Red Blood Count 3.13 10^6/ul (4.00-5.40); Red Cell Distribution Width 15 % (10.5-15); White Blood Count 6.5 10^3/ul (3.5-10.8)
[2018-08-20 10:09] LABS: INR 0.94 (0.77-1.02)
[2018-08-20 13:53] VITALS: BP 169/59
--- NOTE | 2018-08-21 09:36 | CATH ---
CC: Dr. Talley, [facility].* CATH REPORT: DATE OF SERVICE: 08/20/18 - [facility] CATH PRIMARY CARE PHYSICIAN: Dr. Jay. VEHICLE WASHER: Dr. Boothe. PROCEDURE: Right radial artery access unsuccessful due to inability to place the sheath, right common femoral artery access, MynxGrip closure of right common femoral artery, bilateral selective coronary cineangiography. HISTORY: An 88-year-old woman with symptomatic severe aortic stenosis, referred for coronary angiography. Prior cath 2010 demonstrated moderate distal left main and diagonal branch stenosis. She is planned for TAVR by Dr. Talley. PROCEDURE ACCESS: Right radial artery. The right radial artery was easily entered with ultrasound assistance; however, I was unable to advance a sheath. Right radial approach was abandoned. Hemostatic band was applied. Right groin was then prepped and draped, anesthetized, and a 6.5-Faroese sheath placed. MEDICATIONS: 1. Subcu lidocaine. 2. IV Versed. 3. IV fentanyl. DIAGNOSTIC CATHETER: 6-FL 4, 6-FR 4. HEMODYNAMICS: SA 119/37. Final BP 117/44. ANGIOGRAPHY: RFA: Sheath entries in segment 2, there is a calcified eccentric plaque distal to the entry point without significant stenosis. The profunda origin is relatively distal. The iliac is widely patent. Left main: The left main has a distal 40% short stenosis very similar to 2011. LAD: The LAD is moderate, extends past the apex, and has a [id number] first diagonal, which has proximal 50% stenosis followed by luminal irregularity. Proximal LAD has mild nonobstructive plaque. Circumflex: The circumflex is not dominant, with a large marginal, followed by small posterolateral. Incidentally noted is heavy calcification of the aortic leaflets as well as the mitral annulus and aortic cusps. RCA: The RCA is large, dominant with mild nonobstructive plaque at the acute margin, the PDA is moderate followed by a smaller posterolateral. The RCA has no significant stenosis. CONCLUSION: 1. Moderate distal left main and diagonal stenosis similar to 2011. 2. Unsuccessful right radial artery access due to inability to advance the sheath, controlled with hemostatic band. 3. Successful right femoral artery access, MynxGrip closure. 4. Normal left-sided hemodynamics. [id number]/[facility] #: [id number] [facility]
== END | disposition home or self-care (01) ==
LOC: CHICATH 08:27
PROVIDERS: ATTEND Internal Medicine Cardiovascular Disease
DX: I35.0 Nonrheumatic aortic (valve) stenosis (principal); I25.10 Atherosclerotic heart disease of native coronary artery without angina pectoris; N18.3 Chronic kidney disease, stage 3 (moderate); I12.9 Hypertensive chronic kidney disease with stage 1 through stage 4 chronic kidney disease, or unspecified chronic kidney disease; I50.32 Chronic diastolic (congestive) heart failure; D50.9 Iron deficiency anemia, unspecified
CPT/HCPCS: 36415; 80048; 85025; 85610; 85730; 93454; 99156; 99157; A9270-GY; C1760; C1887; J1644; J2250; J3010

== ENCOUNTER 2018-09-30 13:02 | Emergency (ER) | payer MEDICARE ==
--- OUTSIDE RECORDS SUMMARY | 2018-09-30 13:07 | XMS REPORT ---
:1930 External Reference #:[id number] Author Organization [employer] Address [address] [place] [address] [place] [address] Phone [phone] Care Team Providers Name Role Phone Ambrose Narayanan MD Care Team Information Category Consultant Unavailable Nara Jay MD Primary Care Physician Unavailable Payers Type Date Identification Numbers Payment Provider Subscriber Medicare Primary Policy Number: [id number] Medicare Adela Burch PayID: [id number] [address] [place] [address] [facility] Part B Policy Number: [id number] [facility] Adela Burch PayID: [id number] [address] [place] [address] Problems Date Description Provider Status Onset: 10/31/2013 Chronic ischemic heart disease Ambrose Narayanan M.D., [place], Active [facility] Onset: 10/31/2013 Essential hypertension Ambrose Narayanan M.D., [place], Active [facility] Onset: 10/31/2013 Hyperlipidemia Ambrose Narayanan M.D., [place], Active [facility] Onset: 10/31/2013 Aortic valve disorder Ambrose Narayanan M.D., [place], Active [facility] Onset: 12/12/2013 Rheumatic mitral regurgitation Ambrose Narayanan M.D., [place], Active [facility] Onset: 11/29/2015 Mitral valve disorder Ambrose Narayanan M.D., [place], Active [facility] Onset: 11/26/2017 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., [place], Active coronary artery w/o ang pctrs [facility] Onset: 08/29/2018 Encounter for planned Ambrose Narayanan M.D., [facility], Active postprocedural wound closure [facility] Social History Type Date Description Comments Marital Status Lives With Alone Occupation Currently Working Cigarette Use Never Smoked Cigarettes ETOH Use Denies alcohol use Smoking Patient has never smoked Recreational Drug Use Denies Drug Use Daily Caffeine Consumes on average 2 cups of regular coffee per day Exercise Type/Frequency Walks 2 times a week General Hx Text Do you follow special diet: Avoid spicy foods other than that regular diet Do you have problems with snoring , daytime fatigue: No snoring, no daytime fatigue. Allergies, Adverse Reactions, Alerts Date Description Reaction Status Severity Comments 10/31/2013 NKDA active Medications Medication Date Status Form Strength Qnty SIG Indications Ordering Provider Spironolactone 09/18 Active Tablets 25mg 30tab 1/2 by R60.0 Alan S. /2017 s mouth every Boothe, day DO FACC Amlodipine 09/18 Active Tablets 2.5mg 90tab 1 by mouth Alan S. Besylate /2017 s every day Boothe, DO FACC Furosemide 09/18 Active Tablets 20mg 3tabs 1 by mouth Z95.2 Alan S. /2017 every day Boothe, for 3 days DO FACC with potassium. Klor-Con M20 09/18 Active Tablets 20Meq 6tabs Take 2 by Z95.2 Alan S. /2017 ER mouth with Boothe, lasix DO FACC (furosemide ) every day for 3 days Turmeric Curcumin 08/22 Active Capsules 5-1000mg 90cap take one s capsule/tab lynne Orozco M.D. by mouth ( not taking until MD allows here) Irbesartan 06/25 Active Tablets 150mg take 1 Pierre, tablet by Nara mouth every MD Daljit morning Irbesartan 06/25 Active Tablets 75mg 1 by mouth Pierre, every Nara evening MD Daljit B12 Fast Dissolve 06/23 Active Tablets 5000mcg 90tab sublingual Dispers s daily Ernesto MGloD. Methotrexate 04/17 Active Tablets 2.5mg Take 3 Yentzer Tablets By MD Elijah Mouth Once A Week Atorvastatin 03/13 Active Tablets 40mg 1 tablet po Pierre, Calcium daily Nara Bocanegra MD Omeprazole 08/07 Active Capsules 20mg 90cap [address] selma Bocanegra MD Levothyroxine Active Tablets 50mcg 30tab 1 po qd Unknown Sodium /0000 s Aspirin Active Tablets 81mg 100ta 1 po qd Unknown /0000 bs Metoprolol Active Tablets 100mg 135ta 1 by mouth Ambrose Succinate ER /0000 ER 24HR bs in the [place], morning, M.D., 1/2 a pill [facility], in the [facility] evening. Fish Oil + Hanson 3 Active 1200mg 2 soft gels Unknown 360MG /0000 daily Glucosamine Active 2000mg 2 tablet po Unknown /0000 daily Areds Preservision Active 1 tablet po Unknown /0000 twice daily Am/PM Citracal +D3 Active 1 caplets Unknown /0000 every other day Preservision Areds Active 1 po twice Unknown /0000 daily Am/PM Clopidogrel Active Tablets 75mg 1 by mouth Unknown Bisulfate /0000 every day Prednisone 04/10 Hx Tablets 5mg 180ta Please take bs 3 tabs Ernesto, - daily for 2 M.D. 08/13 weeks 2 tabs daily ongoing Atorvastatin 11/15 Hx Tablets 80mg 1 by mouth Iman Calcium every day , Tanner Bains NP 06/30 Diovan 02/03 Hx Tablets 160mg 90tab 1 by mouth Ambrose /2014 s every svetlana, - morning M.DGlo, 06/30 [facility] Vitamin D-1000 12/12 Hx Tablets 2000Unit 2 po qd Tanner Narayanan M.D., 11/28 [facility] Amlodipine 12/12 Hx Tablets 2.5mg 180ta 1 by mouth Ambrose Shoemaker bs twice a day Tanner Narayanan M.D., 09/18 [facility] Amlodipine 11/24 Hx Tablets 2.5mg 90tab 1 po qd Ambrose Shoemaker s Tanner Narayanan M.D., 12/12 FAC [facility] Diovan 04/24 Hx Tablets 80mg 90tab one tab by Ambrose /2012 s mouth every [place], - evening M.D., 06/30 [facility] Atorvastatin 08/23 Hx Tablets 40mg 90tab 1 by mouth Ambrose Calcium /2011 s every day Lady, - M.D., 12/05 [facility] Hydrochlorothiazid 0000 Hx Tablets 25mg 30tab 1 po qd Unknown e /0000 s - 09/11 Ferrous Sulfate 00 Hx Tablets 325(65Fe) 30tab 1 tab 2 Unknown /0000 mg s times week - 11/25 Vitamin D 400 00/ Hx daily Unknown /0000 - 10/23 Vitamin D3 0000 Hx Capsules 2000Unit 30cap 1 po qd Unknown /0000 s - 11/20 Calcium Hx 630mg/500 1 qd Unknown Citrate/Vitamin D3 /0000 Iu - 11/28 Prednisone 00 Hx Tablets 20mg 2 tablets Unknown /0000 by mouth - daily 04/10 Ferrous Sulfate 00 Hx 325mg 1 tablet po Unknown /0000 1-2 times a - week 07/30 Medications Administered in Office Medication Date Status Form Strength Qnty SIG Indications Ordering Provider Technetium TC Administered Injection Ambrose 99M 014 Scott Narayanan M.D., [facility], Per Unit Dose [facility] Up To 40 Millicuries Inj, Administered Injection Ambrose Regadenoson, 012 [place], 0.1 MG Roxanna, FAC, [facility] Technetium TC Administered Injection Ambrose 99M 012 [place], TetrofosminRoxanna, FAC, Per Unit Dose [facility] Up To 40 Millicuries Vital Signs Date Vital Result Comment 09/18/2018 Height 60.75 inches 5'0.75" Weight 131.00 lb w/shoes Heart Rate 88 /min BP Systolic Sitting 150 mmHg Rue small cuff BP Diastolic Sitting 80 mmHg Rue small cuff BP Systolic Standing 140 mmHg Rue small cuff BP Diastolic Standing 75 mmHg Rue small cuff Respiratory Rate 17 /min BMI (Body Mass Index) 25.0 kg/m2 Ejection Fraction 65-70% 07/17/18 08/29/2018 Height 60.75 inches 5'0.75" Weight 131.00 lb Heart Rate 74 /min BP Systolic Sitting 130 mmHg Lue reg cuff BP Diastolic Sitting 70 mmHg Lue reg cuff BP Systolic Standing 124 mmHg Lue BP Diastolic Standing 66 mmHg Lue Respiratory Rate 16 /min BMI (Body Mass Index) 25.0 kg/m2 Ejection Fraction 65-70% as of 07/17/18 echo 08/22/2018 Height 60.75 inches 5'0.75" Weight 132.38 lb Heart Rate 87 /min BP Systolic Sitting 122 mmHg BP Diastolic Sitting 68 mmHg Pain Level 0 O2 % BldC Oximetry 97 % BMI (Body Mass Index) 25.2 kg/m2 07/01/2018 Height 60.75 inches 5'0.75" Weight 133.00 lb with sandals Heart Rate 60 /min BP Systolic Sitting 120 mmHg Lue reg cuff BP Diastolic Sitting 52 mmHg Lue reg cuff BP Systolic Standing 120 mmHg Lue reg cuff BP Diastolic Standing 60 mmHg Lue reg cuff Respiratory Rate 16 /min BMI (Body Mass Index) 25.3 kg/m2 Ejection Fraction 60-65% date 01/10/18 ECHO 06/19/2018 Height 60.75 inches 5'0.75" Weight 131.00 lb Heart Rate 58 /min BP Systolic Sitting 157 mmHg BP Diastolic Sitting 63 mmHg Respiratory Rate 14 /min Pain Level 2 BMI (Body Mass Index) 25.0 kg/m2 11/26/2017 Height 60.75 inches 5'0.75" Weight 134.00 lb with shoes Heart Rate 66 /min sit and 58 stand BP Systolic Sitting 160 mmHg Lue reg cuff BP Diastolic Sitting 60 mmHg Lue reg cuff BP Systolic Standing 148 mmHg Lue reg cuff BP Diastolic Standing 64 mmHg Lue reg cuff Respiratory Rate 16 /min BMI (Body Mass Index) 25.5 kg/m2 Ejection Fraction 60-65% date 01/08/17 ECHO 08/13/2017 Height 60.75 inches 5'0.75" Heart Rate 62 /min BP Systolic Sitting 168 mmHg BP Diastolic Sitting 63 mmHg Respiratory Rate 14 /min Pain Level 0 05/10/2017 Height 60.75 inches 5'0.75" Heart Rate 68 /min BP Systolic Sitting 164 mmHg BP Diastolic Sitting 58 mmHg Respiratory Rate 14 /min Pain Level 0 04/10/2017 Height 60.75 inches 5'0.75" Weight 140.00 lb Heart Rate 64 /min BP Systolic Sitting 150 mmHg BP Diastolic Sitting 64 mmHg Respiratory Rate 14 /min BMI (Body Mass Index) 26.7 kg/m2 12/06/2016 Height 60.75 inches 5'0.75" Weight 139.00 lb Heart Rate 74 /min 82 BP Systolic Sitting 152 mmHg right arm, reg cuff BP Diastolic Sitting 70 mmHg right arm, reg cuff BP Systolic Standing 130 mmHg right arm, reg cuff BP Diastolic Standing 66 mmHg right arm, reg cuff Respiratory Rate 16 /min BMI (Body Mass Index) 26.5 kg/m2 Ejection Fraction >70% 11/13/13 11/29/2015 Height 60.75 inches 5'0.75" Weight 146.00 lb Heart Rate 66 /min 70 BP Systolic Sitting 162 mmHg right arm, reg cuff BP Diastolic Sitting 62 mmHg right arm, reg cuff BP Systolic Standing 124 mmHg right arm, reg cuff BP Diastolic Standing 62 mmHg right arm, reg cuff Respiratory Rate 20 /min BMI (Body Mass Index) 27.8 kg/m2 Ejection Fraction >70% 11/13/13 11/23/2014 Height 60.75 inches 5'0.75" Weight 151.00 lb Heart Rate 70 /min 78 BP Systolic Sitting 126 mmHg left arm, reg cuff BP Diastolic Sitting 58 mmHg left arm, reg cuff BP Systolic Standing 126 mmHg left arm, reg cuff BP Diastolic Standing 58 mmHg left arm, reg cuff Respiratory Rate 20 /min BMI (Body Mass Index) 28.8 kg/m2 10/05/2014 Height 60.75 inches 5'0.75" Weight 153.00 lb Heart Rate 80 /min 88 BP Systolic Sitting 150 mmHg right arm, reg cuff BP Diastolic Sitting 76 mmHg right arm, reg cuff BP Systolic Standing 146 mmHg right arm, reg cuff BP Diastolic Standing 64 mmHg right arm, reg cuff Respiratory Rate 16 /min BMI (Body Mass Index) 29.1 kg/m2 04/03/2014 Height 60.75 inches 5'0.75" Weight 154.00 lb Heart Rate 68 /min 72 BP Systolic Sitting 138 mmHg right arm, reg cuff BP Diastolic Sitting 62 mmHg right arm, reg cuff BP Systolic Standing 134 mmHg right arm, reg cuff BP Diastolic Standing 62 mmHg right arm, reg cuff Respiratory Rate 16 /min BMI (Body Mass Index) 29.3 kg/m2 12/12/2013 Height 60.75 inches 5'0.75" Weight 154.00 lb without shoes Heart Rate 5660 /min sit and stand HR reg BP Systolic Sitting 160 mmHg r arm reg cuff BP Diastolic Sitting 56 mmHg r arm reg cuff BP Diastolic Standing 60 mmHg Respiratory Rate 17 /min BMI (Body Mass Index) 29.3 kg/m2 11/24/2013 Height 60.5 inches 5'0.50" Weight 153.00 lb Heart Rate 6672 /min BP Systolic Sitting 160 mmHg left arm, reg cuff BP Diastolic Sitting 72 mmHg left arm, reg cuff BP Systolic Standing 142 mmHg left arm, reg cuff BP Diastolic Standing 62 mmHg left arm, reg cuff Respiratory Rate 16 /min BMI (Body Mass Index) 29.4 kg/m2 10/31/2013 Height 60.5 inches 5'0.50" Weight 150.00 lb Heart Rate 6672 /min BP Systolic Sitting 148 mmHg right arm, reg cuff BP Diastolic Sitting 60 mmHg right arm, reg cuff BP Systolic Standing 140 mmHg right arm, reg cuff BP Diastolic Standing 56 mmHg right arm, reg cuff Respiratory Rate 20 /min BMI (Body Mass Index) 28.8 kg/m2 Results Test Date Test Result H/L Range Note CBC No Diff 09/09/2018 White Blood Count 9.1 10^3/uL 3.5-10.8 Red Blood Count 2.38 10^6/uL Low 4.00-5.40 Hemoglobin 7.6 g/dL Low 12.0-16.0 Hematocrit 22 % Low 35-47 Mean Corpuscular Volume 94 fL 80-97 Mean Corpuscular Hemoglobin 32 pg High 27-31 Mean Corpuscular HGB Conc 34 g/dL 31-36 Red Cell Distribution Width 14 % 10.5-15 Platelet Count 148 10^3/uL Low 150-450 Mean Platelet Volume 10.4 um3 7.4-10.4 Basic Metabolic Panel 09/09/2018 Sodium 130 mmol/L Low 135-145 Potassium 3.4 mmol/L Low 3.5-5.0 Chloride 103 mmol/L 101-111 Co2 Carbon Dioxide 17 mmol/L Low 22-32 Anion Gap 10 mmol/L 2-11 Glucose 123 mg/dL High 70-100 Blood Urea Nitrogen 30 mg/dL High 6-24 Creatinine 1.35 mg/dL High 0.51-0.95 BUN/Creatinine Ratio 22.2 High 8-20 Calcium 7.7 mg/dL Low 8.6-10.3 Egfr Non- 37.2 >60 Egfr 45.0 >60 1 Basic Metabolic Panel 08/23/2018 Sodium 133 mmol/L Low 135-145 Potassium 3.6 mmol/L 3.5-5.0 Chloride 103 mmol/L 101-111 Co2 Carbon Dioxide 21 mmol/L Low 22-32 Anion Gap 9 mmol/L 2-11 Glucose 118 mg/dL High 70-100 Blood Urea Nitrogen 20 mg/dL 6-24 Creatinine 1.14 mg/dL High 0.51-0.95 BUN/Creatinine Ratio 17.5 8-20 Calcium 8.3 mg/dL Low 8.6-10.3 Egfr Non- 45.2 >60 Egfr 54.7 >60 2 Laboratory test finding 08/23/2018 Erythrocyte Sed Rate 43 mm/Hr High 0- 40 C Reactive Protein 5.63 mg/L <8.01 Basic Metabolic Panel 08/20/2018 Sodium 133 mmol/L Low 135-145 Potassium 3.7 mmol/L 3.5-5.0 Chloride 104 mmol/L 101-111 Co2 Carbon Dioxide 22 mmol/L 22-32 Anion Gap 7 mmol/L 2-11 Glucose 103 mg/dL High 70-100 Blood Urea Nitrogen 26 mg/dL High 6-24 Creatinine 1.19 mg/dL High 0.51-0.95 BUN/Creatinine Ratio 21.8 High 8-20 Calcium 8.8 mg/dL 8.6-10.3 Egfr Non- 43.0 >60 Egfr 52.0 >60 3 CBC Auto Diff 08/20/2018 White Blood Count 6.5 10^3/uL 3.5-10.8 Red Blood Count 3.13 10^6/uL Low 4.00-5.40 Hemoglobin 9.9 g/dL Low 12.0-16.0 Hematocrit 30 % Low 35-47 Mean Corpuscular Volume 95 fL 80-97 Mean Corpuscular Hemoglobin 32 pg High 27-31 Mean Corpuscular HGB Conc 34 g/dL 31-36 Red Cell Distribution Width 15 % 10.5-15 Platelet Count 162 10^3/uL 150-450 Mean Platelet Volume 10.0 um3 7.4-10.4 Abs Neutrophils 4.5 10^3/uL 1.5-7.7 Abs Lymphocytes 0.8 10^3/uL Low 1.0-4.8 Abs Monocytes 0.8 10^3/uL 0-0.8 Abs Eosinophils 0.4 10^3/uL 0-0.6 Abs Basophils 0 10^3/uL 0-0.2 Abs Nucleated RBC 0 10^3/uL Granulocyte % 68.5 % 38-83 Lymphocyte % 12.0 % Low 25-47 Monocyte % 12.7 % High 0-7 Eosinophil % 6.5 % High 0-6 Basophil % 0.3 % 0-2 Nucleated Red Blood Cells % 0 Inr/Protime 08/20/2018 Inr 0.94 0.77-1.02 Laboratory test finding 08/20/2018 Partial Thrombo Time 32.9 seconds 26.0 -36.3 PTT Laboratory test finding 06/19/2018 Vitamin D, 1,25 37 pg/mL 18-78 4 Dihydroxy Vitamin B12 And Folate 06/19/2018 Vitamin B12 319 pg/mL 180-914 5 Serum Folic Acid (Folate) 17.45 ng/mL >3.99 Laboratory test finding 06/19/2018 Ferritin 88.0 ng/mL 11-307 Iron & Iron Binding Capacity 06/19/2018 Iron 78 g/dL 50-212 Unsaturated Iron Binding 245 g/dL Total Iron Binding Capacity 323 g/dL 250-450 Transferrin 231 mg/dL 203-362 % Iron Saturation 24 % 15-55 Laboratory test finding 06/19/2018 Erythrocyte Sed Rate 21 mm/Hr 0-40 C Reactive Protein < 1.00 mg/L <8.01 TSH (Thyroid Stim Horm) 4.22 mcIU/mL 0.34-5.60 Laboratory test finding 08/09/2017 Erythrocyte Sed Rate 34 mm/Hr 0-40 C Reactive Protein < 1.00 mg/L < 5.00 6 Laboratory test finding 05/08/2017 Erythrocyte Sed Rate 20 mm/Hr 0-40 7 C Reactive Protein 2.07 mg/L < 5.00 8 Vitamin D, 1,25 Dihydroxy 39 pg/mL 18-78 9 Creatine Kinase(CK) 36 U/L 10-223 10 Free Cortisol Serum 0.20 g/dL 11 Basic Metabolic Panel 05/08/2017 Sodium 125 mmol/L Low 133-145 Potassium 4.1 mmol/L 3.5-5.0 Chloride 96 mmol/L Low 101-111 Co2 Carbon Dioxide 22 mmol/L 22-32 Anion Gap 7 mmol/L 2-11 Glucose 109 mg/dL High 70-100 Blood Urea Nitrogen 34 mg/dL High 6-24 Creatinine 1.24 mg/dL High 0.51-0.95 BUN/Creatinine Ratio 27.4 High 8-20 Calcium 8.7 mg/dL 8.6-10.3 Egfr Non- 41.1 >60 Egfr 52.9 >60 12 Urine Culture And Sensitivities 03/20/2017 Urine Culture SEE RESULT BELOW 13 Urinalysis Profile 03/20/2017 Urine Color Yellow Urine Appearance Clear Urine Specific Valier 1.012 1.010-1.030 Urine pH 5.0 5-9 Urine Urobilinogen Negative Negative Urine Ketones Negative Negative Urine Protein 1+(30 mg/dL) Negative Urine Leukocytes Trace Negative Urine Blood Negative Negative * * Negative 14 Urine Nitrite Negative Negative Urine Bilirubin Negative Negative Urine Glucose Negative Negative Urine White Blood Cell Trace(0-5/hpf) Absent Urine Red Blood Cell 1+(3-5/hpf) Absent Urine Bacteria 1+ Absent Urine Squamous Epithelial Cell Present Absent Laboratory test finding 03/20/2017 TSH (Thyroid Stim Horm) 5.16 mcIU/mL 0.34-5.60 C Reactive Protein 98.23 mg/L High < 5.00 15 Erythrocyte Sed Rate 47 mm/Hr High 0-40 CKMB 03/20/2017 CKMB ng/mL 2.5 ng/mL 0.6-6.3 Laboratory test finding 03/20/2017 Magnesium 1.5 mg/dL Low 1.9-2.7 Creatine Kinase(CK) 43 U/L 10-223 Troponin-I (TnI) 0.01 ng/mL <0.04 16 Comp Metabolic Panel 03/20/2017 Sodium 129 mmol/L Low 133-145 Potassium 3.2 mmol/L Low 3.5-5.0 Chloride 99 mmol/L Low 101-111 Co2 Carbon Dioxide 20 mmol/L Low 22-32 Anion Gap 10 mmol/L 2-11 Glucose 123 mg/dL High 70-100 Blood Urea Nitrogen 23 mg/dL 6-24 Creatinine 1.06 mg/dL High 0.51-0.95 BUN/Creatinine Ratio 21.7 High 8-20 Calcium 9.2 mg/dL 8.6-10.3 Total Protein 7.1 g/dL 6.4-8.9 Albumin 3.6 g/dL 3.2-5.2 Globulin 3.5 g/dL 2-4 Albumin/Globulin Ratio 1.0 1-3 Total Bilirubin 0.60 mg/dL 0.2-1.0 Alkaline Phosphatase 79 U/L 34-104 Alt 25 U/L 7-52 Ast 20 U/L 13-39 Egfr Non- 49.3 >60 Egfr 63.4 >60 17 Laboratory test finding 03/20/2017 Partial Thrombo Time 32.1 seconds 26.0 -36.3 PTT Lactic Acid 0.7 mmol/L 0.5-2.0 18 Inr/Protime 03/20/2017 Inr 1.01 0.89-1.11 CBC Auto Diff 03/20/2017 White Blood Count 14.5 10^3/uL High 3.5-10.8 Red Blood Count 3.47 10^6/uL Low 4.0-5.4 Hemoglobin 10.0 g/dL Low 12.0-16.0 Hematocrit 30 % Low 35-47 Mean Corpuscular Volume 87 fL 80-97 Mean Corpuscular Hemoglobin 29 pg 27-31 Mean Corpuscular HGB Conc 33 g/dL 31-36 Red Cell Distribution Width 14 % 10.5-15 Platelet Count 189 10^3/uL 150-450 Mean Platelet Volume 10 um3 7.4-10.4 Abs Neutrophils 12.2 10^3/uL High 1.5-7.7 Abs Lymphocytes 0.8 10^3/uL Low 1.0-4.8 Abs Monocytes 1.5 10^3/uL High 0-0.8 Abs Eosinophils 0 10^3/uL 0-0.6 Abs Basophils 0.1 10^3/uL 0-0.2 Abs Nucleated RBC 0 10^3/uL Granulocyte % 83.8 % High 38-83 Lymphocyte % 5.3 % Low 25-47 Monocyte % 10.3 % High 1-9 Eosinophil % 0.2 % 0-6 Basophil % 0.4 % 0-2 Nucleated Red Blood Cells % 0 Laboratory test finding 03/20/2017 B-Type Natriuretic Peptide 386 pg/mL High 19 BNP Total Protein 24HR Urine 08/17/2014 Urine Random Total Protein 7 mg/dL 20 Urine Total Protein/24HR 119 mg/24Hr 0-165 20 Urine Collection Time 24 20 Urine Total Volume 1700 mL 20 Laboratory test finding 08/17/2014 Ferritin 68.2 ng/mL 11-307 21, 22 Iron & Iron Binding Capacity 08/17/2014 Iron 59 g/dL 50-212 21 Unsaturated Iron Binding 281 g/dL 21 Total Iron Binding Capacity 340 g/dL 250-450 21 % Iron Saturation 17 % 15-55 21 Laboratory test finding 08/17/2014 Phosphorus 4.0 mg/dL 2.5-5.0 21, 23 Liver Function Panel 08/17/2014 Direct Bilirubin 0.10 mg/dL 0.03-0.18 21 Indirect Bilirubin 0.3 mg/dL 0.3-1.0 21 Lipid Profile (Trig/Chol/HDL) 08/17/2014 Triglycerides 87 mg/dL 21, 24 Cholesterol 136 mg/dL 21, 25 HDL Cholesterol 35.8 mg/dL 21, 26 LDL Cholesterol 83 mg/dL 21, 27 Comp Metabolic Panel 08/17/2014 Sodium 127 mmol/L Low 133-145 21 Potassium 4.5 mmol/L 3.7-5.6 21 Chloride 100 mmol/L Low 101-111 21 Co2 Carbon Dioxide 22 mmol/L 22-32 21 Anion Gap 5 mmol/L 2-11 21 Glucose 98 mg/dL 70-100 21 Blood Urea Nitrogen 34 mg/dL High 6-24 21 Creatinine 1.42 mg/dL High 0.51-0.95 21 One Over Creatinine 0.70 mg/dL 0.51-0.95 21 BUN/Creatinine Ratio 23.9 High 8-20 21 Calcium 8.9 mg/dL 8.6-10.3 21 Total Protein 6.9 g/dL 6.4-8.9 21 Albumin 3.8 g/dL 3.2-5.2 21 Globulin 3.1 g/dL 2-4 21 Albumin/Globulin Ratio 1.2 1-3 21 Total Bilirubin 0.40 mg/dL 0.2-1.0 21 Alkaline Phosphatase 78 U/L 34-104 21 Alt 16 U/L 7-52 21 Ast 19 U/L 13-39 21 Egfr Non- 35.4 >60 21 Egfr 45.5 >60 21, 28 Pthi 08/17/2014 PTH Intact 3.8 pmol/L 1.3-9.3 21 Calcium (PTH Intact) 8.9 mg/dL 8.6-10.3 21 CBC Auto Diff 08/17/2014 White Blood Count 6.3 10^3/uL 4.8-10.8 21 Red Blood Count 3.36 10^6/uL Low 4.0-5.4 21 Hemoglobin 9.8 g/dL Low 12.0-16.0 21 Hematocrit 30 % Low 35-47 21 Mean Corpuscular Volume 88 fL 80-97 21 Mean Corpuscular Hemoglobin 29 pg 27-31 21 Mean Corpuscular HGB Conc 33 g/dL 31-36 21 Red Cell Distribution Width 14 % 10.5-15 21 Platelet Count 189 10^3/uL 150-450 21 Mean Platelet Volume 9 um3 7.4-10.4 21 Abs Neutrophils 4.1 10^3/uL 1.5-7.7 21 Abs Lymphocytes 1.1 10^3/uL 1.0-4.8 21 Abs Monocytes 0.8 10^3/uL 0-0.8 21 Abs Eosinophils 0.3 10^3/uL 0-0.6 21 Abs Basophils 0 10^3/uL 0-0.2 21 Abs Nucleated RBC 0 10^3/uL 21 Granulocyte % 64.7 % 38-83 21 Lymphocyte % 17.2 % Low 25-47 21 Monocyte % 13.0 % High 1-9 21 Eosinophil % 4.7 % 0-6 21 Basophil % 0.4 % 0-2 21 Nucleated Red Blood Cells % 0 21 Creatinine Clearance 08/17/2014 Urine Random Creatinine 50.56 mg/dL 21 Creatinine 1.41 mg/dL High 0.51-0.95 21 Creatinine Clearance 42 mL/min Low 88-128 21 Urine Collection Time 24 21 Urine Total Volume 1700 mL 21 Laboratory test 08/17/2014 Erythropoietin 4.7 mIU/mL 2.6 - 18.5 21, 29 finding Creatinine 02/02/2014 Urine Random Creatinine 51.84 mg/dL Clearance Creatinine 1.31 mg/dL High 0.51-0.95 Creatinine Clearance 55 mL/min Low 88-128 Urine Collection Time 24 Urine Total Volume 2000 mL Total Protein 24HR Urine 02/02/2014 Urine Random Total Protein 9 mg/dL Urine Total Protein/24HR 180 mg/24Hr High 0-165 Laboratory test finding 02/02/2014 Vitamin D 1,25-Dihydroxy 26 pg/mL 18- 78 30 Pthi 02/02/2014 PTH Intact 2.9 pmol/L 1.3-9.3 Calcium (PTH Intact) 9.1 mg/dL 8.6-10.3 Laboratory test finding 02/02/2014 Uric Acid 7.2 mg/dL High 2.3-6.6 31 Phosphorus 3.4 mg/dL 2.5-5.0 32 Liver Function Panel 02/02/2014 Direct Bilirubin 0.10 mg/dL 0.03-0.18 Indirect Bilirubin 0.2 mg/dL Low 0.3-1.0 Lipid Profile (Trig/Chol/HDL) 02/02/2014 Triglycerides 92 mg/dL 33 Cholesterol 149 mg/dL 34 HDL Cholesterol 35.8 mg/dL 35 LDL Cholesterol 95 mg/dL 36 Comp Metabolic Panel 02/02/2014 Sodium 135 mmol/L 133-145 Potassium 3.8 mmol/L 3.7-5.6 Chloride 106 mmol/L 101-111 Co2 Carbon Dioxide 23 mmol/L 22-32 Anion Gap 6 mmol/L 2-11 Glucose 84 mg/dL 70-100 Blood Urea Nitrogen 30 mg/dL High 6-24 Creatinine 1.31 mg/dL High 0.51-0.95 One Over Creatinine 0.70 mg/dL 0.51-0.95 BUN/Creatinine Ratio 22.9 High 8-20 Calcium 9.1 mg/dL 8.6-10.3 Total Protein 6.7 g/dL 6.4-8.9 Albumin 3.9 g/dL 3.2-5.2 Globulin 2.8 g/dL 2-4 Albumin/Globulin Ratio 1.4 1-3 Total Bilirubin 0.30 mg/dL 0.2-1.0 Alkaline Phosphatase 81 U/L 34-104 Alt 15 U/L 7-52 Ast 16 U/L 13-39 Egfr Non- 38.9 >60 Egfr 50.0 >60 37 CBC Auto Diff 02/02/2014 White Blood Count 6.6 10^3/uL 4.8-10.8 Red Blood Count 3.40 10^6/uL Low 4.0-5.4 Hemoglobin 9.8 g/dL Low 12.0-16.0 Hematocrit 30 % Low 35-47 Mean Corpuscular Volume 89 fL 80-97 Mean Corpuscular Hemoglobin 29 pg 27-31 Mean Corpuscular HGB Conc 33 g/dL 31-36 Red Cell Distribution Width 14 % 10.5-15 Platelet Count 179 10^3/uL 150-450 Mean Platelet Volume 10 um3 7.4-10.4 Abs Neutrophils 4.0 10^3/uL 1.5-7.7 Abs Lymphocytes 1.3 10^3/uL 1.0-4.8 Abs Monocytes 0.9 10^3/uL High 0-0.8 Abs Eosinophils 0.4 10^3/uL 0-0.6 Abs Basophils 0 10^3/uL 0-0.2 Abs Nucleated RBC 0 10^3/uL Granulocyte % 60.7 % 38-83 Lymphocyte % 19.7 % Low 25-47 Monocyte % 13.0 % High 1-9 Eosinophil % 6.2 % High 0-6 Basophil % 0.4 % 0-2 Nucleated Red Blood Cells % 0 Laboratory test finding 11/10/2013 Erythropoietin 8.0 mIU/mL 2.6 - 18.5 38 Vitamin D 1,25-Dihydroxy 28 pg/mL 18-78 39 Total Protein 24HR Urine 11/10/2013 Urine Random Total Protein < 6.0 mg/dL Urine Total Protein/24HR (SEE NOTE) mg/24Hr 0-165 40 Creatinine Clearance 11/10/2013 Urine Random Creatinine 48.6 mg/dL Creatinine 1.4 mg/dL 0.5-1.4 Creatinine Clearance 51 mL/min Low 88-128 Urine Collection Time 24 Urine Total Volume 2100 mL Pthi 11/10/2013 PTH Intact 3.7 pmol/L 1.3-9.0 Calcium (PTH Intact) 8.8 mg/dL 8.1-9.9 Laboratory test finding 11/10/2013 Ferritin 65 ng/mL 11-307 Vitamin B12 390 pg/mL 180-914 Iron & Iron Binding Capacity 11/10/2013 Iron 67 g/dL 28-170 Unsaturated Iron Binding 237 g/dL Total Iron Binding Capacity 304 g/dL 250-450 % Iron Saturation 22 % 15-55 Laboratory test finding 11/10/2013 Uric Acid 6.4 mg/dL 2.6-7.2 Liver Function Panel 11/10/2013 Direct Bilirubin 0.1 mg/dL 0.1-0.5 Indirect Bilirubin 0.5 mg/dL 0.3-1.0 Lipid Profile (Trig/Chol/HDL) 11/10/2013 Triglycerides 96 mg/dL 40-200 Cholesterol 129 mg/dL Less than 200 HDL Cholesterol 36 mg/dL Low 40-60 41 Cholesterol/HDL Ratio 3.6 Average 1-4.44 LDL Cholesterol 73.8 Less Than 100 42 Comp Metabolic Panel 11/10/2013 Sodium 130 mmol/L Low 133-145 Potassium 3.9 mmol/L 3.5-5.0 Chloride 103 mmol/L 101-111 Co2 Carbon Dioxide 22.0 mmol/L 22-32 Anion Gap 5.0 mmol/L 2-11 Glucose 87 mg/dL 70-100 Blood Urea Nitrogen 28 mg/dL High 6-24 Creatinine 1.40 mg/dL 0.50-1.40 One Over Creatinine 0.70 BUN/Creatinine Ratio 20.0 8-20 Calcium 8.5 mg/dL 8.1-9.9 Total Protein 6.3 g/dL 6.2-8.1 Albumin 3.5 g/dL 3.2-5.2 Globulin 2.8 g/dL 2-4 Albumin/Globulin Ratio 1.3 1-3 Total Bilirubin 0.6 mg/dL 0.4-1.5 Alkaline Phosphatase 77 U/L 30-110 Alt 19 U/L 14-54 Ast 22 U/L 12-42 Egfr Non- 36.1 >60 Egfr 46.4 >60 43 CBC Auto Diff 11/10/2013 White Blood Count 6.2 10^3/uL 4.8-10.8 Red Blood Count 3.38 10^6/uL Low 4.0-5.4 Hemoglobin 10.3 g/dL Low 12.0-16.0 Hematocrit 30 % Low 35-47 Mean Corpuscular Volume 88 fL 80-97 Mean Corpuscular Hemoglobin 30 pg 27-31 Mean Corpuscular HGB Conc 35 g/dL 31-36 Red Cell Distribution Width 14 % 10.5-15 Platelet Count 151 10^3/uL 150-450 Mean Platelet Volume 10 um3 7.4-10.4 Abs Neutrophils 3.9 10^3/uL 1.5-7.7 Abs Lymphocytes 1.2 10^3/uL 1.0-4.8 Abs Monocytes 0.7 10^3/uL 0-0.8 Abs Eosinophils 0.3 10^3/uL 0-0.6 Abs Basophils 0 10^3/uL 0-0.2 Abs Nucleated RBC 0.01 10^3/uL Granulocyte % 63.2 % 38-83 Lymphocyte % 20.0 % Low 25-47 Monocyte % 11.3 % High 1-9 Eosinophil % 5.1 % 0-6 Basophil % 0.4 % 0-2 Nucleated Red Blood Cells % 0.1 Urinalysis W/Microscopic 11/10/2013 Urine Color Yellow Urine Appearance Clear Urine Specific Valier 1.011 1.010-1.030 Urine Esterase Trace Negative Urine Nitrate Negative Negative Urine Urobilinogen Negative E.U./dL Negative Urine Protein Negative mg/dL Negative Urine pH 5.5 5-9 Urine Blood Negative Negative Urine Ketones Negative mg/dL Negative Urine Bilirubin Negative Negative Urine Glucose Negative mg/dL Negative Urine WBC 1+ (<10 /hpf) None Seen Urine RBC 1+ (<3 /hpf) None Seen Urine Epithelial Cells 1+ Squamous /hpf None Seen Bacteria Urine 1+ None Seen Basic Metabolic Panel 05/16/2013 Sodium 133 mmol/L 133-145 Potassium 4.0 mmol/L 3.5-5.0 Chloride 103 mmol/L 101-111 Co2 Carbon Dioxide 24.0 mmol/L 22-32 Anion Gap 6.0 mmol/L 2-11 Glucose 96 mg/dL 70-100 Blood Urea Nitrogen 34 mg/dL High 6-24 Creatinine 1.40 mg/dL 0.50-1.40 BUN/Creatinine Ratio 24.3 High 8-20 Calcium 10.0 mg/dL High 8.1-9.9 Egfr Non- 36.1 >60 Egfr 46.4 >60 44 Basic Metabolic Panel 04/24/2013 Sodium 132 mmol/L Low 133-145 Potassium 4.3 mmol/L 3.5-5.0 Chloride 104 mmol/L 101-111 Co2 Carbon Dioxide 24.0 mmol/L 22-32 Anion Gap 4.0 mmol/L 2-11 Glucose 104 mg/dL High 70-100 Blood Urea Nitrogen 24 mg/dL 6-24 Creatinine 1.20 mg/dL 0.50-1.40 BUN/Creatinine Ratio 20.0 8-20 Calcium 9.7 mg/dL 8.1-9.9 Egfr Non- 43.1 >60 Egfr 55.5 >60 45 1 Because ethnic data is not always readily available, this report includes an eGFR for both -Americans and non- Americans. The National Kidney Disease Education Program (NKDEP) does not endorse the use of the MDRD equation for patients that are not between the ages of 18 and 70, are , have extremes of body size, muscle mass, or nutritional status, or are non- or non-. According to the National Kidney Foundation, irrespective of diagnosis, the stage of the disease is based on the level of kidney function: Stage Description GFR(mL/min/1.73 m(2)) 1 Kidney damage with normal or decreased GFR 90 2 Kidney damage with mild decrease in GFR 60-89 3 Moderate decrease in GFR 30-59 4 Severe decrease in GFR 15-29 5 Kidney failure <15 (or dialysis) 2 Because ethnic data is not always readily available, this report includes an eGFR for both -Americans and non- Americans. The National Kidney Disease Education Program (NKDEP) does not endorse the use of the MDRD equation for patients that are not between the ages of 18 and 70, are , have extremes of body size, muscle mass, or nutritional status, or are non- or non-. According to the National Kidney Foundation, irrespective of diagnosis, the stage of the disease is based on the level of kidney function: Stage Description GFR(mL/min/1.73 m(2)) 1 Kidney damage with normal or decreased GFR 90 2 Kidney damage with mild decrease in GFR 60-89 3 Moderate decrease in GFR 30-59 4 Severe decrease in GFR 15-29 5 Kidney failure <15 (or dialysis) 3 Because ethnic data is not always readily available, this report includes an eGFR for both -Americans and non- Americans. The National Kidney Disease Education Program (NKDEP) does not endorse the use of the MDRD equation for patients that are not between the ages of 18 and 70, are , have extremes of body size, muscle mass, or nutritional status, or are non- or non-. According to the National Kidney Foundation, irrespective of diagnosis, the stage of the disease is based on the level of kidney function: Stage Description GFR(mL/min/1.73 m(2)) 1 Kidney damage with normal or decreased GFR 90 2 Kidney damage with mild decrease in GFR 60-89 3 Moderate decrease in GFR 30-59 4 Severe decrease in GFR 15-29 5 Kidney failure <15 (or dialysis) 4 ADDITIONAL INFORMATION This test was developed and its performance characteristics determined by [facility] in a manner consistent with CLIA requirements. This test has not been cleared or approved by the U.S. Food and Drug Administration. Test Performed by: [facility] [address] [place] [address] 5 Normal Range 180 to 914 Indeterminate Range 145 to 180 Deficient Range <145 6 Acute inflammation: >10.00 7 Please check 2 days before follow up 8 Acute inflammation: >10.00 9 ADDITIONAL INFORMATION This test was developed and its performance characteristics determined by [facility] in a manner consistent with CLIA requirements. This test has not been cleared or approved by the U.S. Food and Drug Administration. Test Performed by: [facility] [address] [place] [address] 10 Please check 2 days before follow up 11 Adult Reference Ranges for Cortisol, Free, LC/MS/MS: 8:00 - 10:00 AM 0.07-0.93 mcg/dL 4:00 - 6:00 PM 0.04-0.45 mcg/dL 10:00 - 11:00 PM 0.04-0.35 mcg/dL This test was developed and its analytical performance characteristics have been determined by [facility]. It has not been cleared or approved by FDA. This assay has been validated pursuant to the CLIA regulations and is used for clinical purposes. Test Performed by: [facility] [address] [place] [address] 12 Because ethnic data is not always readily available, this report includes an eGFR for both -Americans and non- Americans. The National Kidney Disease Education Program (NKDEP) does not endorse the use of the MDRD equation for patients that are not between the ages of 18 and 70, are , have extremes of body size, muscle mass, or nutritional status, or are non- or non-. According to the National Kidney Foundation, irrespective of diagnosis, the stage of the disease is based on the level of kidney function: Stage Description GFR(mL/min/1.73 m(2)) 1 Kidney damage with normal or decreased GFR 90 2 Kidney damage with mild decrease in GFR 60-89 3 Moderate decrease in GFR 30-59 4 Severe decrease in GFR 15-29 5 Kidney failure <15 (or dialysis) 13 SEE RESULT BELOW Name: ADELA BURCH : [address]: Shanita Summers DO Acct: [id number] Unit: [id number] AGE: 87 Location: [place] [address] Re03/21/17 SEX: F Status: ADM IN SPEC: [id number] LYNN: 03/21/[address]: Antelmo Redd MD REQ: [id number] RECD: 03/21/17 STATUS: MATTHEW SENA DR: Ambrose Jay MD _ SOURCE: URINE SPDESC: ORDERED: Urine Culture Procedure Result Reported Site Urine Culture Final 03/22/17- 0953 ML No growth of clinically significant organisms * ML - MAIN LAB ([facility]) . END OF REPORT * ML=Testing performed at Main Lab DEPARTMENT OF PATHOLOGY, [address] [place] [address] Maximino Jackson M.D. Director [facility] # [id number] 14 *Ascorbic acid is present which may interfere with detection of blood. 15 Acute inflammation: >10.00 16 99th percentile=0.04 ng/mL Troponin results at [facility] and [facility] are not interchangeable. 17 Because ethnic data is not always readily available, this report includes an eGFR for both -Americans and non- Americans. The National Kidney Disease Education Program (NKDEP) does not endorse the use of the MDRD equation for patients that are not between the ages of 18 and 70, are , have extremes of body size, muscle mass, or nutritional status, or are non- or non-. According to the National Kidney Foundation, irrespective of diagnosis, the stage of the disease is based on the level of kidney function: Stage Description GFR(mL/min/1.73 m(2)) 1 Kidney damage with normal or decreased GFR 90 2 Kidney damage with mild decrease in GFR 60-89 3 Moderate decrease in GFR 30-59 4 Severe decrease in GFR 15-29 5 Kidney failure <15 (or dialysis) 18 [facility] Severe Sepsis and Septic Shock Management Bundle Measure requires all lactic acids initially measuring >2.0 mmol/L be repeated. 19 >100 to <200 pg/mL: likely compensated congestive heart failure (CHF) 200 to 400 pg/mL: likely moderate CHF >400 pg/mL: likely moderate to severe CHF 20 Collected from 08/16/14644 through 08/17/14644. 21 PT IS FASTING 22 PT IS FASTING 23 PT IS FASTING 24 Desirable <150 Borderline high 150-199 High 200-499 Very High >500 25 Desirable <200 Borderline high 200-239 High >239 26 Low <40 Desirable: 40-60 High: >60 27 Desirable <100 Near Optimal 100-129 Borderline high 130-159 High 160-189 Very High >189 28 Because ethnic data is not always readily available, this report includes an eGFR for both -Americans and non- Americans. The National Kidney Disease Education Program (NKDEP) does not endorse the use of the MDRD equation for patients that are not between the ages of 18 and 70, are , have extremes of body size, muscle mass, or nutritional status, or are non- or non-. According to the National Kidney Foundation, irrespective of diagnosis, the stage of the disease is based on the level of kidney function: Stage Description GFR(mL/min/1.73 m(2)) 1 Kidney damage with normal or decreased GFR 90 2 Kidney damage with mild decrease in GFR 60-89 3 Moderate decrease in GFR 30-59 4 Severe decrease in GFR 15-29 5 Kidney failure <15 (or dialysis) 29 Test Performed by: [place] [address] Headliner Installer: Rudy Topete III, M.D. 30 Test Performed by: [address] [address] Headliner Installer: Rudy Topete III, M.D. 31 PT HAD PLAIN OATMEAL THIS A.M. WANTS TESTING DONE REGARDLESS 32 PT HAD PLAIN OATMEAL THIS A.M. WANTS TESTING DONE REGARDLESS 33 Desirable <150 Borderline high 150-199 High 200-499 Very High >500 34 Desirable <200 Borderline high 200-239 High >239 35 Low <40 Desirable: 40-60 High: >60 36 Desirable <100 Near Optimal 100-129 Borderline high 130-159 High 160-189 Very High >189 37 Because ethnic data is not always readily available, this report includes an eGFR for both -Americans and non- Americans. The National Kidney Disease Education Program (NKDEP) does not endorse the use of the MDRD equation for patients that are not between the ages of 18 and 70, are , have extremes of body size, muscle mass, or nutritional status, or are non- or non-. According to the National Kidney Foundation, irrespective of diagnosis, the stage of the disease is based on the level of kidney function: Stage Description GFR(mL/min/1.73 m(2)) 1 Kidney damage with normal or decreased GFR 90 2 Kidney damage with mild decrease in GFR 60-89 3 Moderate decrease in GFR 30-59 4 Severe decrease in GFR 15-29 5 Kidney failure <15 (or dialysis) 38 Test Performed by: [place] [address] Headliner Installer: Rudy Topete III, M.D. 39 Test Performed by: [facility] [address] [place] [address] Headliner Installer: Rudy Topete III, M.D. 40 Unable to calculate due to insufficient protein Unable to calculate due to insufficient protein 41 HDL Interpretation: Undesirable: High Risk: Less than 40 mg/dL Desirable: Low Risk: Greater than 60 mg/dL 42 LDL Interpretation: Low Risk Optimal Level: LDL Less than 100 mg/dL Near or Above Optimal: LDL 100-129 mg/dL Borderline High Risk: LDL 130-159 mg/dL High Risk: LDL 160-189 mg/dL Very High Risk: LDL Greater than 189 mg/dL 43 Because ethnic data is not always readily available, this report includes an eGFR for both -Americans and non- Americans. The National Kidney Disease Education Program (NKDEP) does not endorse the use of the MDRD equation for patients that are not between the ages of 18 and 70, are , have extremes of body size, muscle mass, or nutritional status, or are non- or non-. According to the National Kidney Foundation, irrespective of diagnosis, the stage of the disease is based on the level of kidney function: Stage Description GFR(mL/min/1.73 m(2)) 1 Kidney damage with normal or decreased GFR 90 2 Kidney damage with mild decrease in GFR 60-89 3 Moderate decrease in GFR 30-59 4 Severe decrease in GFR 15-29 5 Kidney failure <15 (or dialysis) 44 Because ethnic data is not always readily available, this report includes an eGFR for both -Americans and non- Americans. The National Kidney Disease Education Program (NKDEP) does not endorse the use of the MDRD equation for patients that are not between the ages of 18 and 70, are , have extremes of body size, muscle mass, or nutritional status, or are non- or non-. According to the National Kidney Foundation, irrespective of diagnosis, the stage of the disease is based on the level of kidney function: Stage Description GFR(mL/min/1.73 m(2)) 1 Kidney damage with normal or decreased GFR 90 2 Kidney damage with mild decrease in GFR 60-89 3 Moderate decrease in GFR 30-59 4 Severe decrease in GFR 15-29 5 Kidney failure <15 (or dialysis) 45 Because ethnic data is not always readily available, this report includes an eGFR for both -Americans and non- Americans. The National Kidney Disease Education Program (NKDEP) does not endorse the use of the MDRD equation for patients that are not between the ages of 18 and 70, are , have extremes of body size, muscle mass, or nutritional status, or are non- or non-. According to the National Kidney Foundation, irrespective of diagnosis, the stage of the disease is based on the level of kidney function: Stage Description GFR(mL/min/1.73 m(2)) 1 Kidney damage with normal or decreased GFR 90 2 Kidney damage with mild decrease in GFR 60-89 3 Moderate decrease in GFR 30-59 4 Severe decrease in GFR 15-29 5 Kidney failure <15 (or dialysis) Procedures Date CPT Code Description Status 08/20/2018 90565 Cath PLMT&NJX L Ventriculog Img S&I Completed 07/17/2018 28732 ECHO Transthoracic, Real-Time 2D With Doppler And Color Completed Flow 07/17/2018 65663 ECHO Transthoracic, Real-Time 2D With Doppler And Color Completed Flow 03/13/2018 46951 Biopsy Skin Lesion Single Completed 01/10/2018 12028 ECHO Transthorasic Realtime 2D W Doppler & Color Flow Completed Hosp 11/26/2017 72812 EKG Tracing & Interpretation Completed 01/08/2017 56628 ECHO Transthorasic Realtime 2D W Doppler & Color Flow Completed Hosp 12/06/2016 18173 EKG Tracing & Interpretation Completed 11/29/2015 92372 EKG Tracing & Interpretation Completed 10/05/2014 48252 EKG Tracing & Interpretation Completed 04/03/2014 78592 EKG Tracing & Interpretation Completed 03/27/2014 Bone Mineral Density Test Completed 01/01/2014 15468 Pulse Wave/Continuous-Interp.RPT Completed 01/01/2014 67959 Echocardiography, Transesophageal, Real Time W/Image 2D Completed W/W/O M-M 01/01/2014 69229 Color Flow Doppler/Interp & Reprt Completed 12/10/2013 25234 Stress Test Completed 12/10/2013 51819 Myocardial Perfusion Imaging Tomographic (Spect) Completed Multiple Studies 11/13/2013 68749 ECHO Transthoracic, Real-Time 2D With Doppler And Color Completed Flow 10/31/2013 39673 EKG Tracing & Interpretation Completed 04/15/2013 78371 EKG Tracing & Interpretation Completed 10/15/2012 18108 Stress Test Completed 10/15/2012 41846 Myocardial Perfusion Imaging Tomographic (Spect) Completed Multiple Studies 10/03/2012 36274 ECHO Transthoracic, Real-Time 2D With Doppler And Color Completed Flow 09/17/2012 28645 EKG Tracing & Interpretation Completed 06/26/2011 41316 EKG, Interpretation Only Completed Encounters Type Date Location Provider CPT E/M Dx Office Visit 08/29/2018 [facility] Ambrose Narayanan M.D., 74894 Z48.812 3:40p Implementation Analyst AT [facility], [facility] Office Visit 08/22/2018 [facility] Orozco, 02700 M35.3 1:40p Of Verónica Mcknight M17.0 M50.322 D64.9 Office Visit 07/01/2018 2:00p [facility] Alan Boothe, 10612 I35.0 [facility] I25.10 I65.29 N18.9 D64.9 M35.3 Office Visit 06/19/2018 11:20a [facility] Edison Orozco, 00322 M35.3 Verónica Medrano.Marlyn R20.8 D64.9 E55.9 M50.322 Office Visit 06/17/2018 3:00p [facility] [place] [address] L72.0 T88.7xxD Office Visit 04/17/2018 2:00p [facility] [place] [address] T88.7xxD Office Visit 03/27/2018 2:20p [facility] [place] [address] T88.7xxA Z79.899 Office Visit 02/06/2018 3:20p [facility] [place] [address] L30.9 Office Visit 11/26/2017 2:40p [facility] Ambrose Narayanan M.D., 55476 I35.0 Implementation Analyst AT [facility] I25.10 E78.5 Office Visit 08/13/2017 2:00p [facility] Edison Butlerdor, 04086 M35.3 Verónica Mcknight E55.9 R53.1 M65.872 Office Visit 05/10/2017 2:00p [facility] Edison Orozco, 83256 M35.3 Verónica Mcknight Z79.52 E55.9 R53.1 Office Visit 04/10/2017 3:00p [facility] Edison Orozco, 96510 M35.3 Verónica Mcknight Z79.52 E55.9 R53.1 Office Visit 03/22/2017 3:55p [facility] Shanita Summers, 28333 M35.3 Hospitalists D.O. R53.1 I10 I25.10 Office Visit 03/21/2017 3:55p [facility] [address] R53.1 Hospitalists I10 I25.10 Office Visit 12/06/2016 3:00p [facility] Ambrose Narayanan M.D., 67943 I35.0 Implementation Analyst AT [facility] I34.0 I25.10 I10 E78.5 Office Visit 11/29/2015 2:40p [facility] Ambrose Narayanan M.D., 12024 I35.0 Implementation Analyst AT [facility] I34.0 I25.9 I10 E78.5 Office Visit 11/23/2014 2:40p [facility] Ambrose Narayanan M.D., 27329 424.0 Implementation Analyst AT [facility] 424.1 401.9 414.9 394.1 272.4 Office Visit 10/05/2014 2:40p [facility] Ambrose Narayanan M.D., 72005 424.1 Implementation Analyst AT [facility] 401.9 414.9 Office Visit 04/03/2014 3:30p [facility] Ambrose Narayanan M.D., 36501 424.1 Implementation Analyst AT [facility] 401.9 414.9 394.1 272.4 Office Visit 12/12/2013 2:45p [facility] Ambrose Narayanan M.D., 56876 401.9 Implementation Analyst AT [facility] 424.1 414.9 394.1 Office Visit 11/24/2013 2:45p [facility] Ambrose Narayanan M.D., 21404 424.1 Implementation Analyst AT [facility] 414.9 401.9 272.4 Office Visit 10/31/2013 3:30p [facility] Ambrose Narayanan M.D., 95530 414.9 Implementation Analyst AT [facility] 401.9 272.4 424.1 Office Visit 05/02/2013 2:30p [facility] Ambrose Narayanan M.D., 12453 414.9 Implementation Analyst AT [facility] 401.9 272.4 Office Visit 04/15/2013 2:00p [facility] Archana Narayanan M.D., 26016 414.9 [facility] 401.9 Office Visit 10/17/2012 2:00p [facility] Archana Narayanan M.D., 03689 414.9 [facility] 424.1 394.1 Office Visit 10/08/2012 3:00p [facility] Archana Narayanan M.D., 61028 414.9 [facility] 786.09 Office Visit 09/17/2012 2:00p [facility] Ambrose Narayanan M.D., 35141 424.1 [facility] 414.9 786.09 Plan of Care Future Appointment(s):10/23/2018 2:40 pm - Alan Boothe DO FACC at [facility]10/11/2018 1:00 pm - Nurse Visit IC at [facility] AT [facility]10/07/2018 2:00 pm - Ica ECHO Schedule at [facility]02/2019 2:00 pm - Edison Orozco M.D. at [facility]2017 - Alan Boothe, DO FACCZ95.2 Presence of prosthetic heart valveNew Medication:Furosemide 20 mgKlor-Con M20 20 MeqNew Therapy:Cardiac RehabComments: Try taking iron tablets once day (or every other day) to build your hemoglobin back up. Get a over the counter multivitamin to take as well.Stay of the hydrochlorothiazide for now. Start taking 1/2 tablet of spironolactone daily ( 12.5 mg). It will raise and not lower the potassium. It also lowers blood pressureDecrease amlodipine to just 1 tablet a day (it can cause edema or leg swelling) Take 3 days of lasix (furosemide) with potassium. Have blood work performed in 2 weeksFollow up:f/u after mpvywzlqjefoufK91.9 Anemia, fyoqjrwwjwzP15.0 Localized edemaNew Medication:Spironolactone 25 mgI10 Essential (primary) hypertension
[2018-09-30 13:31] VITALS: BP 149/62
--- NOTE | 2018-09-30 13:49 | UC ---
HPI Wound/Suture Re-check - HPI Summary HPI Summary: Patient had a MVP repair in [place] on 09/04/18 and she has been up and around more. She is scheduled for cardiac rehab on Sunday. She called the surgeon in [place] and they told her to come in and get checked out. She denies fever, chills, fatigue, shortness of breath. or chest pain. She is on anticoagulants - History Of Current Complaint Chief Complaint: UCWounds Stated Complaint: WOUND COMPLAINT Time Seen by Provider: 09/30/18 13:21 Hx Obtained From: Patient Onset/Duration: Sudden Onset Pain Intensity: 0 - Allergies/Home Medications Allergies/Adverse Reactions: Allergies Allergy/AdvReac Type Severity Reaction Status Date / Time No Known Allergies Allergy Verified 09/30/18 13:14 Home Medications: Home Medications Clopidogrel TAB* [Plavix TAB*] 75 mg PO DAILY 09/30/18 [History Confirmed ] Omeprazole CAP* [Prilosec CAP* 20 MG] 20 mg PO DAILY 09/30/18 [History Confirmed 09/30/18] PMH/Surg Hx/FS Hx/Imm Hx Previously Healthy: Yes Cardiovascular History: Cardiac Disease - Surgical History Surgical History: Yes Surgery Procedure, Year, and Place: hysterectomy . mitral valve surgery 2017 - Family History Known Family History: Negative: Hypertension - Social History Occupation: Retired Alcohol Use: None Substance Use Type: None Smoking Status (MU): Never Smoked Tobacco - Immunization History Most Recent Influenza Vaccination: 2016 Most Recent Pneumonia Vaccination: 2014 Review of Systems All Other Systems Reviewed And Are Negative: Yes Constitutional: Positive: Negative Skin: Positive: Negative, Other - small amount of bleeding from surgical site. right groin. Eyes: Positive: Negative ENT: Positive: Negative Respiratory: Positive: Negative Cardiovascular: Positive: Negative Gastrointestinal: Positive: Negative Genitourinary: Positive: Negative Motor: Positive: Negative Neurovascular: Positive: Negative Musculoskeletal: Positive: Negative Neurological: Positive: Negative Psychological: Positive: Negative Physical Exam Triage Information Reviewed: Yes Appearance: Well-Appearing Vital Signs: Initial Vital Signs Temp 99.1 F 09/30/18 13:22 Pulse 78 09/30/18 13:22 Resp 20 09/30/18 13:22 BP 149/62 09/30/18 13:22 Pulse Ox 100 09/30/18 13:22 Vital Signs Reviewed: Yes Eye Exam: Normal ENT Exam: Normal Neck exam: Normal Respiratory Exam: Normal Cardiovascular: Positive: Murmur:Sys:Grade _?_/ - 4/6 Abdominal Exam: Normal Musculoskeletal Exam: Normal Skin Exam: Other - small puncture wound in right groin. no surrounding induration, or flucuance. not warm to touch, tiny amount of ronan red blood noted on dressing. Course/Dx - Course Course Of Treatment: Patient presents s/p MVP repair on 09/04/18 and has had a small amount of bight red blood on her dressing x mornings. She is on Plavix and has been up and around more and lifting more. She has a nontoxic appearance , normal vital signs and no signs of infection at the site. I did recommend no more lifting, follow up with rehab on sunday and return if any increase in bleeding, redness, pain, pussy drainage, fever, chills or anyother symtpoms she finds concerning. - Differential Dx - Laceration/Wound Differential Diagnoses: Other - wound check Provider Diagnoses: wound check Discharge - Sign-Out/Discharge Documenting (check all that apply): Patient Departure All imaging exams completed and their final reports reviewed: No Studies - Discharge Plan Condition: Stable Disposition: HOME Patient Education Materials: Puncture Wound (DC) Referrals: Nara Jay MD [Primary Care Provider] - - Billing Disposition and Condition Condition: STABLE Disposition: Home - Attestation Statements Provider Attestation: Per institutional requirements, I have reviewed the chart, however, I was not consulted specifically or made aware of this patient by the midlevel provider. I did not personally evaluate, interact with , or disposition this patient.
== END 2018-09-30 13:45 | disposition home or self-care (01) ==
LOC: UCEAST 13:02
DX: Z48.812 Encounter for surgical aftercare following surgery on the circulatory system (principal); Z79.01 Long term (current) use of anticoagulants
CPT/HCPCS: 99212; G0463

== ENCOUNTER 2021-01-28 06:34 | Inpatient (IN) ==
[~2021-01-28 06:34] MED LIST changes: -Acetylcysteine CAP (RENAL)* 600 MG PO ONE; -Acetylcysteine ORAL SOL* 200 MG/ML VIAL PO ONE; +Buffered Lidocaine 1% SYRIN 1 ml INTRADERM ONE; -Heparin 2 UNITS/ML IVPREMIX* 2,000 ML IV ONE; -Heparin(*) 1000 UNIT/ML 10 ML VIAL CATH LAB IV ONE; -Iodixanol* (CONTRAST) 320 MG/ML 100 ML SDV ONE; +Lactated Ringers 1000 ml BAG 1,000 ML IV SCH; -Lidocaine 1% INJ* 10 MG/ML 30 ML SDV ONE; -Midazolam* 1 MG/ML 10 ML VIAL (10 MG) ONE; -NS 0.9% 1000 ML* 1,000 ML IV SCH; -VERAPAMIL 2.5 MG/ML 2 ML VIAL ** 5 mg/2 ml ONE; -fentaNYL* 50 MCG/ML 2 ML VIAL (100 MCG VIAL) ONE; -nitroGLYCERIN DRIP* 25,000 MCG/250 ML BTL ONE
[2021-01-28] MEDS ORDERED: Propofol 10 MG/ML 20 ML BTL ONE (07:03)
[2021-01-28] MEDS ORDERED: Lidocaine 2% PF 5 ML VIAL ONE (07:05)
[2021-01-28] MEDS ORDERED: Ketamine HCL 50 mg/ml 10 ml VIAL (500 MG) ONE (07:10)
[2021-01-28] MEDS ORDERED: Midazolam 2 mg/2 ml VIAL 1 mg/ml 2 ml VIAL (2 mg) ONE (07:15)
[2021-01-28] MEDS ORDERED: ceFAZolin 2 GM PREMIX 2 GM/50 ML BAG ONE (07:15)
[2021-01-28] MEDS ORDERED: Midazolam 5 mg/5 ml VIAL 1 mg/ml 5 ml VIAL (5 mg) ONE (07:46)
[2021-01-28] MEDS ORDERED: ROPIVACAINE 5 MG/ML 30 ML BTL (0.5%) ONE (07:51)
[2021-01-28] MEDS ORDERED: Lidocaine 1% MPF 5 ML VIAL ONE (07:52)
[2021-01-28] MEDS ORDERED: Ondansetron 4 mg VIAL 2 MG/ML 2 ml VIAL IV PRN (08:54)
[2021-01-28] MEDS ORDERED: Ondansetron ODT 4 mg TAB 4 MG TAB PO PRN (08:54)
[2021-01-28] MEDS ORDERED: Lactulose 30 ml UDC PO PRN (08:54)
[2021-01-28] MEDS ORDERED: Morphine 2 MG/ML SYRINGE IV PRN (08:54)
[2021-01-28] MEDS ORDERED: diPHENhydraMINE IV 50 MG/ML 1 ml VIAL (BENADRYL) IV PRN (08:54)
[2021-01-28] MEDS ORDERED: Magnesium Hydroxide LIQ 30 ML UDC PO PRN (08:54)
[2021-01-28] MEDS ORDERED: diPHENhydraMINE 25 mg TAB PO PRN (08:54)
[2021-01-28] MEDS ORDERED: Bupivacaine 0.5% SDV PF 30ML VIAL ONE (08:58)
[2021-01-28] MEDS ORDERED: EPHEDrine (Pressors) 50 MG/ML VIAL ONE (11:20)
[2021-01-28] MEDS ORDERED: Naloxone 0.4 mg VIAL 0.4 mg/ml 1 ml VIAL IV PRN (11:27)
[2021-01-28] MEDS: Magnesium Hydroxide LIQ 30 ML UDC PO SCH ×2 (13:33→20:40)
[2021-01-28] MEDS: Vitamin THERAPEUTIC TAB PO SCH (13:33)
[2021-01-28] MEDS: Lactated Ringers 1000 ml BAG 1,000 ML IV SCH (13:37)
[2021-01-28] MEDS: ceFAZolin 1 GM ADVAN 1 GM in NS 0.9% 50 ML 50 ML IVPB SCH (15:58)
[2021-01-29] MEDS: ceFAZolin 1 GM ADVAN 1 GM in NS 0.9% 50 ML 50 ML IVPB SCH ×2 (00:38→08:39)
[2021-01-29] MEDS: Lactated Ringers 1000 ml BAG 1,000 ML IV SCH (00:42)
[2021-01-29 04:57] LABS: Hematocrit 22 % (35-47); Hemoglobin 7.3 g/dL (12.0-16.0); Platelet Count 93 10^3/uL (150-450)
[2021-01-29 05:08] LABS: BUN/Creatinine Ratio 26.3 (8-20); Calcium 8.1 mg/dL (8.6-10.3); EGFR African American 54.3 (>60); EGFR Non-African American 44.9 (>60); Potassium 4.4 mmol/L (3.5-5.0)
[2021-01-29] MEDS ORDERED: Irbesartan 150 mg TAB (NF) PO SCH (09:00)
[2021-01-29 09:33] LABS: ABS Lymphocytes 0.6 10^3/ul (1.0-4.8); ABS Monocytes 1.2 10^3/ul (0-0.8); ABS Neutrophils 7.9 10^3/ul (1.5-7.7); Eosinophil % 0.4 %; Hematocrit 21 % (35-47); Hemoglobin 7.1 g/dL (12.0-16.0); Lymphocyte % 5.9 %; Mean Corpuscular HGB Conc 34 g/dL (31-36); Mean Corpuscular Hemoglobin 34 pg (27-31); Mean Corpuscular Volume 99 fL (80-97); Mean Platelet Volume 9.7 fL (7.4-10.4); Platelet Count 117 10^3/uL (150-450); Red Blood Count 2.12 10^6 /uL (3.70-4.87); Red Cell Distribution Width 15 % (10-15); White Blood Count 9.7 10^3/uL (3.5-10.8)
[2021-01-29] MEDS: Vitamin THERAPEUTIC TAB PO SCH (10:41)
[2021-01-29] MEDS: Magnesium Hydroxide LIQ 30 ML UDC PO SCH ×2 (10:45→21:32)
[2021-01-30 08:12] LABS: ABS Eosinophils 0.3 10^3/ul (0-0.6); ABS Lymphocytes 0.6 10^3/ul (1.0-4.8); ABS Monocytes 1.8 10^3/ul (0-0.8); ABS Neutrophils 7.9 10^3/ul (1.5-7.7); Eosinophil % 3.1 %; Hematocrit 23 % (35-47); Hemoglobin 7.8 g/dL (12.0-16.0); Lymphocyte % 5.6 %; Mean Corpuscular HGB Conc 34 g/dL (31-36); Mean Corpuscular Hemoglobin 33 pg (27-31); Mean Corpuscular Volume 96 fL (80-97); Mean Platelet Volume 10.5 fL (7.4-10.4); Platelet Count 97 10^3/uL (150-450); Red Blood Count 2.36 10^6 /uL (3.70-4.87); Red Cell Distribution Width 14 % (10-15); White Blood Count 10.6 10^3/uL (3.5-10.8)
[2021-01-30 08:25] LABS: Anion Gap 5 mmol/L (2-11); Blood Urea Nitrogen 26 mg/dL (6-24); CO2 Carbon Dioxide 21 mmol/L (22-32); Calcium 8.2 mg/dL (8.6-10.3); Chloride 102 mmol/L (101-111); EGFR African American 54.9 (>60); EGFR Non-African American 45.3 (>60); Glucose 119 mg/dL (70-100); Potassium 4.5 mmol/L (3.5-5.0); Sodium 128 mmol/L (135-145)
[2021-01-30 08:27] LABS: Total Iron Binding Capacity 246 mcg/dL (250-450); Transferrin 176 mg/dL (203-362)
[2021-01-30 08:32] LABS: % Iron Saturation 8 % (15-55); Iron < 20 ug/dL (50-212); Unsaturated Iron Binding < 231 ug/dL
[2021-01-30 08:50] LABS: Vitamin B12 438 pg/mL (180-914)
[2021-01-30] MEDS: Magnesium Hydroxide LIQ 30 ML UDC PO SCH (09:03)
[2021-01-30] MEDS: Vitamin THERAPEUTIC TAB PO SCH (09:04)
[2021-01-30 11:28] VITALS: BP 146/48
[2021-02-03 08:49] LABS: Albumin 2.4 g/dL (3.4-4.7); Albumin/Globulin Ratio 1.06; Gamma Globulin 0.5 g/dL (0.6-1.6); Total Protein(PEP) 4.6 g/dL (6.3 - 7.9)
== END 2021-01-30 13:10 | disposition home or self-care (01) | DRG 470 ==
LOC: AA 06:34 → SSU 12:52
PROVIDERS: ADMIT Orthopaedic Surgery Adult Reconstructive Orthopaedic Surgery; ATTEND Orthopaedic Surgery Adult Reconstructive Orthopaedic Surgery